=== PATIENT | male | born 1960 | race Caucasian/White ===

== ENCOUNTER 2019-01-29 01:06 | Emergency (ER) | payer OTHER, BC ==
[2019-01-29 01:19] VITALS: BP 142/76; PULSE 94; RESP 18; TEMP 98.3
--- NOTE | 2019-01-29 01:54 | ED ---
General Adult HPI - General Chief complaint: Extremity Injury, Lower Stated complaint: R Leg Pain Time Seen by Provider: 01/29/19 01:25 Source: patient, RN notes reviewed Mode of arrival: wheelchair Limitations: physical limitation - History of Present Illness Initial comments: 58-year-old male presents to the emergency department for a chief complaint of right calf pain 2 days. Patient states he started to notice this yesterday when he was working but denies any injuries. Denies ever feeling a snap. States that today the pain worsens severely where it is now painful to walk on. Patient denies any history of blood clots. Denies any significant swelling in the leg. Patient denies fevers or chills. Denies pain with bending the knee.Patient has no other complaints at this time including shortness of breath, chest pain, abdominal pain, nausea or vomiting, headache, or visual changes. - Related Data Home Medications Medication Instructions Recorded Confirmed Albuterol Sulfate [Proair Hfa] 1 puff INHALATION QID PRN 03/07/14 01/29/19 Rosuvastatin [Crestor] 1 tab PO HS 03/07/14 01/29/19 ALPRAZolam [Xanax] 1 mg PO DAILY PRN 01/29/19 01/29/19 Buprenorphine HCl/Naloxone HCl 1 mg PO BID 01/29/19 01/29/19 [Suboxone 8 mg-2 mg Sl Film] Naproxen [Naprosyn] 500 mg PO Q12HR PRN 01/29/19 01/29/19 Previous Rx's Medication Instructions Recorded Multivitamins, Thera [Multivitamin 1 each PO DAILY@1200 #30 tab 07/17/14 (formulary)] Allergies Allergy/AdvReac Type Severity Reaction Status Date / Time No Known Allergies Allergy Verified 01/29/19 01:19 Review of Systems ROS Statement: Those systems with pertinent positive or pertinent negative responses have been documented in the HPI. ROS Other: All systems not noted in ROS Statement are negative. Past Medical History Past Medical History: COPD, Hyperlipidemia Additional Past Medical History / Comment(s): chronic back pain, chronic drug use and dependence, chronic alcohol use and dependence, hyperlipidemia. History of Any Multi-Drug Resistant Organisms: None Reported, MRSA Date of last positivie culture/infection: 2012 MDRO Source:: abd wound Past Surgical History: Hernia Repair Additional Past Surgical History / Comment(s): umbilical and inguinal hernia Past Anesthesia/Blood Transfusion Reactions: No Reported Reaction Past Psychological History: Anxiety Smoking Status: Current every day smoker Past Alcohol Use History: Abuse Past Drug Use History: None Reported - Past Family History Mother Family Medical History: CVA/TIA (Mother at age of 85 from rheumatoid arthritis and she developed CVA) Father Family Medical History: Cancer (Father at the age of 75 from brain cancer) Sister(s) Family Medical History: No Reported History (One sister no major medical problem) Daughter(s) Family Medical History: No Reported History (One daughter 34-year-old no major medical problems.) General Exam Limitations: physical limitation General appearance: alert, in no apparent distress Head exam: Present: atraumatic, normocephalic, normal inspection Eye exam: Present: normal appearance, PERRL, EOMI. Absent: scleral icterus, conjunctival injection, periorbital swelling ENT exam: Present: normal exam, mucous membranes moist Neck exam: Present: normal inspection, full ROM. Absent: tenderness, meningismus, lymphadenopathy Respiratory exam: Present: normal lung sounds bilaterally. Absent: respiratory distress, wheezes, rales, rhonchi, stridor Cardiovascular Exam: Present: regular rate, normal rhythm, normal heart sounds. Absent: systolic murmur, diastolic murmur, rubs, gallop, clicks Extremities exam: Present: full ROM (Full range of motion of the right knee), tenderness (Minimal tenderness to the anterior right knee, there is mild posterior knee tenderness and proximal calf tenderness.), normal capillary refill (Capillary refill less than 2 seconds, pedal pulse 2+ in the right lower extremity), calf tenderness (Positive Homans sign, mild proximal calf tenderness.). Absent: pedal edema, joint swelling, other (No significant erythema or edema noted in the right calf, no increased circumference.) Neurological exam: Present: alert, oriented X3, CN II-XII intact Psychiatric exam: Present: normal affect, normal mood Course Vital Signs 01/29/19 01:09 Temperature 98.3 F Pulse Rate 94 Respiratory 18 Rate Blood Pressure 142/76 O2 Sat by Pulse 93 L Oximetry Medical Decision Making - Medical Decision Making 58-year-old male presents for right knee pain 2 days. Denies any injuries. States it is now painful to walk on. Denies pain with flexion of the knee. On exam patient is able to fully flex and extend right knee. Mild posterior knee tenderness and proximal calf tenderness. Neurovascular status intact. No erythema or edema. No evidence of infection. Ultrasound was ordered to rule out DVT. Ultrasound of the right lower extremity shows no DVT. At this time I do not see an emergent cause for knee pain. Patient was educated to follow up with primary care in 1-2 days and return if he has any worsening symptoms. Disposition Clinical Impression: Knee pain, right Disposition: HOME SELF-CARE Condition: Good Instructions (If sedation given, give patient instructions): Knee Pain (ED) Additional Instructions: Please follow up with primary care in 1-2 days. Return here to the ED if you have any worsening symptoms. Is patient prescribed a controlled substance at d/c from ED?: No Referrals: Hoa Crowe MD [Primary Care Provider] - 1-2 days Time of Disposition: 02:49
--- NOTE | 2019-01-29 02:16 | US ---
EXAM: US Duplex Right Lower Extremity Veins CLINICAL HISTORY: ITS.REASON US Reason: Pain TECHNIQUE: Real-time duplex ultrasound scan of the right lower extremity veins integrating B-mode two-dimensional vascular structure, Doppler spectral analysis, color flow Doppler imaging and compression. COMPARISON: No relevant prior studies available. FINDINGS: Deep veins: No DVT in the visualized common femoral, femoral, proximal deep femoral or popliteal veins. The veins demonstrate normal color flow, are normally compressible, with normal phasic flow and/or augmentation response. Superficial veins: No thrombus in the visualized great saphenous vein. Soft tissues: No popliteal cyst. IMPRESSION: No DVT.
== END 2019-01-29 03:07 | disposition home or self-care (01) ==
LOC: EC 01:06
DX: M25.561 Pain in right knee (principal); J44.9 Chronic obstructive pulmonary disease, unspecified; E78.5 Hyperlipidemia, unspecified; M54.9 Dorsalgia, unspecified; G89.29 Other chronic pain; F17.200 Nicotine dependence, unspecified, uncomplicated; Z86.14 Personal history of Methicillin resistant Staphylococcus aureus infection; Z79.899 Other long term (current) drug therapy
CPT/HCPCS: 99283

== ENCOUNTER → 2019-02-05 | Outpatient (CLI) | payer BC ==
--- NOTE | 2019-02-06 16:43 | MR ---
EXAMINATION TYPE: MR lumbar spine wo con DATE OF EXAM: 02/05/2019 COMPARISON: 10/06/2012 HISTORY: LBP, radiates into rt calf TECHNIQUE: Multiplanar, multisequence images of the lumbar spine were acquired. Lumbar vertebra have normal alignment. There is narrowing of L3-4 L4-5 disc spaces with spurring of t he endplates. There are small posterior disc herniations at L3-4 L4-5. There is developmentally adequ ate spinal canal and no significant spinal stenosis. There is no compression fracture. Posterior rampart ents are intact. There is hypertrophic facet arthropathy. There is mild lateral recess stenosis at L4 -5 due to facet arthropathy. There is some narrowing of the left side L4-5 neural foramen due to disc space narrowing and facet arthropathy. There is no paraspinal mass. There is no focal bone destruction. Sacroiliac joints are intact. IMPRESSION: Spondylotic changes. Mild lateral recess stenosis at L4-5. No significant spinal stenosis. No fractur e. Left-sided neural foraminal impingement at L4-5 due to facet arthropathy and posterior lateral dis c bulging and disc space narrowing.
== END | disposition home or self-care (01) ==
LOC: RADMRIMAIN 19:57
PROVIDERS: ATTEND Internal Medicine
DX: M99.73 Connective tissue and disc stenosis of intervertebral foramina of lumbar region (principal); M48.061 Spinal stenosis, lumbar region without neurogenic claudication; M47.16 Other spondylosis with myelopathy, lumbar region; M46.96 Unspecified inflammatory spondylopathy, lumbar region; M51.06 Intervertebral disc disorders with myelopathy, lumbar region
CPT/HCPCS: 72148

== ENCOUNTER → 2019-03-02 | Outpatient (CLI) | payer BC ==
[2019-03-02 13:47] VITALS: BP 127/72; PULSE 75; RESP 16; TEMP 98.3
--- NOTE | 2019-03-02 14:56 | XR ---
EXAMINATION TYPE: XR knee limited RT DATE OF EXAM: 03/02/2019 CLINICAL HISTORY: Pain. TECHNIQUE: Frontal and lateral views of the right knee are obtained. COMPARISON: Right leg x-ray March 09, 2015. FINDINGS: There is no acute fracture/dislocation evident in right knee. [id number]-[id number] tricompartm ental joint space loss most prominent medial tibiofemoral compartment. Mild spurring patellofemoral c ompartment. Increased density suprapatellar bursa suggestive of small to moderate-sized joint effusio n. IMPRESSION: As above.
--- NOTE | 2019-03-02 15:29 | P.PAINCN ---
History of Present Illness - Reason for Consult Consult date: 03/02/19 - History of Present Illness This is a 58-year-old patient presenting with a one-month history of right anterior and posterior knee pain as well as right calf pain. He denies any inciting event. He notes that he has had chronic low back pain for about 8-10 years, but this pain does not seem to be originating from his low back. He denies numbness, tingling, weakness. The patient states that over the last month he has had a few days where he has been unable to bear weight on the leg. He feels like his pain has stayed about the same since it began. He also notes when he first noticed the pain, his right knee was swollen. This has since subsided. Pain is worse with climbing stairs, better with naproxen which she is taking 3 times a day. Of note, the patient was weaned off narcotics by Dr. Arnold and transition to Suboxone. He reports that he was misusing opioids prior to starting Suboxone and had requested his doctor to wean him off opioids. Patient denies adverse drug effects from medications. Patient also denies new- onset weakness, bowel/bladder incontinence, or any other signs or symptoms of cauda equina syndrome. There are no signs of acute intoxication, and no indications of medication diversion or overuse. In addition to above, 13-point review of systems is also negative for chest pain, shortness of breath, changes in vision, changes in hearing, new onset weakness, abdominal pain, diarrhea, extreme fatigue, malaise, fever, skin changes, homicidal or suicidal ideation, or bowel or bladder incontinence. Vital Signs: Reviewed in EMR GENERAL: Well appearing, in no acute distress PSYCH: Mood and affect is appropriate. Awake, alert, and oriented SKIN: Skin color, texture, turgor normal, no rashes or lesions HEENT: Normocephalic, atraumatic. EOM intact CV: No pedal edema RESP: Respirations are unlabored, no audible wheezing GI: Abdomen non-distended MUSCULOSKELETAL: Bilateral upper and lower extremity strength is normal and symmetric. No atrophy or tone abnormalities are noted. Lumbar spine: Straight leg raising in the sitting position is negative for radicular pain. No pain to palpation over the lumbar spine and paraspinous muscles. Negative for pain with facet loading and back extension/rotation. Normal range of motion without pain reproduction Buttocks: No pain to palpation over the PSIS, Richard test is negative Right knee: Tenderness to palpation along medial and posterior joint line. No joint laxity noted. Anterior and posterior drawer tests are negative. Gait: Gait is slow, favors his left leg NEUR: Bilateral lower extremity coordination and muscle stretch reflexes are physiologic and symmetric. Negative clonus. No loss of sensation is noted. Cranial nerves are grossly intact. Imaging: MRI lumbar spine done on 02/05/2019 at [facility] shows spondylotic changes, mild lateral recess narrowing at L4-5 with left-sided neuroforaminal impingement at that level. No significant spinal canal stenosis. Assessment: 1. Right knee pain 2. Chronic opioid use: Suboxone 3. Chronic low back pain likely due to a combination of lumbar spondylosis and myofascial pain Plan: 1. Procedures: Will schedule right knee intra-articular steroid injection 2. Consultations: None 3. Investigations: Right knee AP and lateral x-ray 4. Medications: To be managed by PCP. Patient taking Suboxone and naproxen per PCP 5. Disposition: For procedure Past Medical History Past Medical History: COPD, Hyperlipidemia Additional Past Medical History / Comment(s): chronic back pain - degenerative disk disease and spurs History of Any Multi-Drug Resistant Organisms: MRSA Year Discovered:: 2012 MDRO Source:: abd wound Past Surgical History: Bowel Resection, Hernia Repair Additional Past Surgical History / Comment(s): bowel resection with colostomy for perforation, colostomy later reversed Past Anesthesia/Blood Transfusion Reactions: No Reported Reaction, Unable to Obtain Additional Past Anesthesia/Blood Transfusion Reaction / Comm: adopted-no family hx Past Psychological History: No Psychological Hx Reported Smoking Status: Current every day smoker Past Alcohol Use History: None Reported Additional Past Alcohol Use History / Comment(s): smokes 1/2 PPD, has smoked for 30 yrs, past hx ETOH and drug use Past Drug Use History: None Reported - Past Family History Mother Family Medical History: Unable to Obtain Additional Family Medical History / Comment(s): adopted Father Family Medical History: Cancer (Father at the age of 75 from brain cancer) Sister(s) Family Medical History: No Reported History (One sister no major medical problem) Daughter(s) Family Medical History: No Reported History (One daughter 34-year-old no major medical problems.) Medications and Allergies Home Medications Medication Instructions Recorded Confirmed Type Albuterol Sulfate [Proair Hfa] 2 puff INHALATION QID PRN 03/07/14 02/26/19 History Rosuvastatin [Crestor] 20 mg PO HS 03/07/14 03/02/19 History ALPRAZolam [Xanax] 1 mg PO DAILY PRN 01/29/19 03/02/19 History Naproxen [Naprosyn] 500 mg PO TID 01/29/19 03/02/19 History Buprenorphine HCl/Naloxone HCl 1 each SL BID 02/26/19 03/02/19 History [Suboxone 8 mg-2 mg Sl Film] Cholecalciferol (Vitamin D3) 2,000 unit PO DAILY 02/26/19 03/02/19 History [Vitamin D3] Ubidecarenone [Co Q-10] 200 mg PO DAILY 02/26/19 03/02/19 History Allergies Allergy/AdvReac Type Severity Reaction Status Date / Time No Known Allergies Allergy Verified 02/26/19 13:53 Physical Exam Vitals: Vital Signs Temp Pulse Resp BP Pulse Ox 03/02/19 13:39 98.3 F 75 16 127/72 97 PQRS Measure Charge Sheet Measure #130: Documentation of Current Meds in Medical Chart: Patient's medications documented in chart Measure #226: Tobacco Use: Screen & Cessation Intervention: Pt screened for tobacco use AND intervention given Measure #111: Pneumonia Vaccination: Pneumococcal vaccine NOT administered or previously given Measure #47: Advance Care Plan: Advance care planning discussed & documented, pt chose/unable to give Measure #412: Opioid Treatment Agreement: No documentation of signed opioid treatment agreement Measure #317: Preventitive Care & Scrn High Bld Press & F/U: Normal blood pressure, f/u not required Measure #128: Body Mass Index (BMI) Screening & Follow-up: BMI documented within normal parameters Measure #131: Pain Assessment & Follow-up: Pain positive & plan documented, Follow-up scheduled Measure #431: Unhealthy Alcohol Use Preventative Care & Scrn: Patient not identified as an unhealthy alcohol user PQRS Narrative: Smoking Status Current every day smoker Blood Pressure 127/72 Pain Intensity [Right Upper 3 Calf] Scale Used Numeric (1 - 10) Hx Alcohol Use (MH) No Home Medications: Ambulatory Orders Albuterol Sulfate [Proair Hfa] 2 puff INHALATION QID PRN 03/07/14 Rosuvastatin [Crestor] 20 mg PO HS 03/07/14 ALPRAZolam [Xanax] 1 mg PO DAILY PRN 01/29/19 Naproxen [Naprosyn] 500 mg PO TID 01/29/19 Buprenorphine HCl/Naloxone HCl [Suboxone 8 mg-2 mg Sl Film] 1 each SL BID 02/26/19 Cholecalciferol (Vitamin D3) [Vitamin D3] 2,000 unit PO DAILY 02/26/19 Ubidecarenone [Co Q-10] 200 mg PO DAILY 02/26/19
== END | disposition home or self-care (01) ==
LOC: PNWHC3 12:11
PROVIDERS: ATTEND Anesthesiology
DX: G89.29 Other chronic pain (principal); M25.561 Pain in right knee; M54.5 Low back pain; E78.5 Hyperlipidemia, unspecified; J44.9 Chronic obstructive pulmonary disease, unspecified; F17.200 Nicotine dependence, unspecified, uncomplicated; Z79.891 Long term (current) use of opiate analgesic; Z79.1 Long term (current) use of non-steroidal anti-inflammatories (NSAID); Z79.899 Other long term (current) drug therapy
CPT/HCPCS: 99211

== ENCOUNTER 2019-03-11 09:59 | Day surgery (SDC) | payer BC ==
[2019-03-08 15:52] VITALS: BMI 23.7
[2019-03-11 10:17] VITALS: RESP 18; TEMP 97.8
[2019-03-11] MEDS ORDERED: LIDOCAINE 1% 20 ML VIAL (10MG/ML) FOR IV START INTRADERMA ONE (10:23)
[2019-03-11] MEDS ORDERED: LACTATED RINGERS 1,000 ML IV ONE (10:23)
--- NOTE | 2019-03-11 10:50 | P.PCN ---
Date of Procedure: 03/11/19 Procedure(s) Performed: Procedure Note PROCEDURE PERFORMED: Right intra-articular knee joint injection. PREOPERATIVE DIAGNOSIS: Right knee pain and osteoarthritis POSTOPERATIVE DIAGNOSIS: same ATTENDING PHYSICIAN: Josy Rausch M.D. ANESTHESIA: Local infiltration of 2mL of 1% lidocaine, 1 mg versed INJECTATE: 5mL total solution, containing 4mL of 1% lidocaine and 1mL of 40mg/mL Kenalog SEDATION WAS PROVIDED Ultrasound was used for the procedure and images were printed and saved to chart. ESTIMATED BLOOD LOSS: None. COMPLICATIONS: None. A timeout was completed, verifying correct patient, procedure, site, positioning, and implants or special equipment. INDICATIONS FOR PROCEDURE: Patient has a clinical picture of knee pain and osteoarthritis of the above- mentioned knee joint(s). PROCEDURE AND FINDINGS: The patient was seen in the preoperative holding area. After verification of informed consent, availability of pizza delivery driver and n.p.o. status, the patient was brought to the procedure unit and placed on the bed with bilateral knees flexed using a pillow. Monitors were applied consisting of EKG, pulse oximetry, and noninvasive blood pressure cuff. The patient was monitored throughout the case. The area over the right knee(s) was then prepped in the usual sterile fashion. After identifying a point on the inferomedial pole of the femur by palpation, the ultrasound machine was prepped into the field and used for needle guidance. Using continuous ultrasound guidance, a 22-gauge 3-inch Pajunk needle was advanced easily in to the medial portion of the knee joint. Aspiration for intra-vascular placement was negative. At this point, the above listed injectate was delivered in to the joint without resistance. The needle was visualized throughout the entire procedure using ultrasound. The needle was then withdrawn. The patient tolerated the procedure well, with n o apparent complications. The patient was then taken to the postop holding area, where they remained hemodynamically stable and was observed for 20-30 mins. After instructions were given, the patient was discharged home in stable condition with a responsible adult.
[2019-03-11] MEDS ORDERED: IV FLUID CONTINUATION 1,000 ML IV ONE (10:52)
[2019-03-11 11:15] VITALS: BP 110/63; PULSE 72
== END 2019-03-11 11:42 | disposition home or self-care (01) ==
LOC: ORPAIN 09:59
PROVIDERS: ATTEND Anesthesiology
DX: M17.11 Unilateral primary osteoarthritis, right knee (principal); M47.816 Spondylosis without myelopathy or radiculopathy, lumbar region; M79.18 Myalgia, other site; G89.29 Other chronic pain; J44.9 Chronic obstructive pulmonary disease, unspecified; E78.5 Hyperlipidemia, unspecified; F17.200 Nicotine dependence, unspecified, uncomplicated; Z79.891 Long term (current) use of opiate analgesic; Z79.1 Long term (current) use of non-steroidal anti-inflammatories (NSAID); Z79.899 Other long term (current) drug therapy; Z90.49 Acquired absence of other specified parts of digestive tract; Z86.14 Personal history of Methicillin resistant Staphylococcus aureus infection; Z80.8 Family history of malignant neoplasm of other organs or systems
CPT/HCPCS: 20611; J2250; J3301; J2001; 20610; 99152

== ENCOUNTER 2019-04-01 09:37 | Emergency (ER) | payer BC ==
[2019-04-01 09:46] VITALS: BP 114/70; PULSE 95; RESP 18; TEMP 97.7
--- NOTE | 2019-04-01 10:20 | ED ---
Extremity Problem HPI - General Chief complaint: Extremity Problem,Nontraumatic Stated complaint: Leg swelling-needs US Time Seen by Provider: 04/01/19 09:49 Source: patient, RN notes reviewed, old records reviewed Mode of arrival: ambulatory Limitations: no limitations - History of Present Illness Initial comments: Bull is a 58-year-old male presents emergency department today for evaluation for right lower extremity redness and swelling. Patient reports it's importance over the past week. Patient states it seems to be swelling when he gets off of his work shift. Patient states that he called the pain clinic where he receives an injection within the knee. 2. They stated that he should be checked for blood clots. Patient states that he is a smoker but no history of blood clots. Patient reports a few weeks ago he had injury in his leg at work, and pulled a muscle. - Related Data Home Medications Medication Instructions Recorded Confirmed Albuterol Sulfate [Proair Hfa] 2 puff INHALATION RT-QID PRN 03/07/14 04/01/19 Rosuvastatin [Crestor] 20 mg PO HS 03/07/14 04/01/19 ALPRAZolam [Xanax] 1 mg PO DAILY PRN 01/29/19 04/01/19 Naproxen [Naprosyn] 500 mg PO TID 01/29/19 04/01/19 Buprenorphine HCl/Naloxone HCl 1 film SL BID 02/26/19 04/01/19 [Suboxone 8 mg-2 mg Sl Film] Cholecalciferol (Vitamin D3) 2,000 unit PO DAILY 02/26/19 04/01/19 [Vitamin D3] Ubidecarenone [Co Q-10] 200 mg PO DAILY 02/26/19 04/01/19 Previous Rx's Medication Instructions Recorded Cephalexin [Keflex] 500 mg PO Q8HR #21 cap 04/01/19 Allergies Allergy/AdvReac Type Severity Reaction Status Date / Time No Known Allergies Allergy Verified 04/01/19 10:00 Review of Systems ROS Statement: Those systems with pertinent positive or pertinent negative responses have been documented in the HPI. ROS Other: All systems not noted in ROS Statement are negative. Past Medical History Past Medical History: COPD, Hyperlipidemia Additional Past Medical History / Comment(s): chronic back pain - degenerative disk disease and spurs History of Any Multi-Drug Resistant Organisms: MRSA Date of last positivie culture/infection: 2012 MDRO Source:: abd wound Past Surgical History: Bowel Resection, Hernia Repair Additional Past Surgical History / Comment(s): bowel resection with colostomy for perforation, colostomy later reversed Past Anesthesia/Blood Transfusion Reactions: No Reported Reaction, Unable to Obtain Additional Past Anesthesia/Blood Transfusion Reaction / Comment(s): adopted-no family hx Past Psychological History: No Psychological Hx Reported Smoking Status: Current every day smoker Past Alcohol Use History: None Reported Past Drug Use History: None Reported - Past Family History Mother Family Medical History: Unable to Obtain Additional Family Medical History / Comment(s): adopted Father Family Medical History: Cancer (Father at the age of 75 from brain cancer) Sister(s) Family Medical History: No Reported History (One sister no major medical problem) Daughter(s) Family Medical History: No Reported History (One daughter 34-year-old no major medical problems.) General Exam - General Exam Comments Initial Comments: Plasant 58 YO male Limitations: no limitations General appearance: alert, in no apparent distress Head exam: Present: atraumatic, normocephalic, normal inspection Eye exam: Present: normal appearance, PERRL, EOMI. Absent: scleral icterus, conjunctival injection, periorbital swelling ENT exam: Present: normal exam, mucous membranes moist Neck exam: Present: normal inspection Respiratory exam: Present: normal lung sounds bilaterally. Absent: respiratory distress, wheezes, rales, rhonchi, stridor Cardiovascular Exam: Present: regular rate GI/Abdominal exam: Present: soft, normal bowel sounds. Absent: distended, tende rness, guarding, rebound, rigid Extremities exam: Present: normal inspection, full ROM, normal capillary refill. Absent: tenderness, pedal edema, joint swelling, calf tenderness Right Knee exam: Present: normal inspection, full ROM Lower Leg exam: Present: abrasion (scabed over abrasion over distal liu. measures 1cm. ), erythema (erythema around abrasion site. ). Absent: tenderness Ankle exam: Present: normal inspection, full ROM. Absent: tenderness Foot/Toe exam: Present: normal inspection, full ROM Gait: observed and normal Back exam: Present: normal inspection Neurological exam: Present: alert, oriented X3, CN II-XII intact Psychiatric exam: Present: normal affect, normal mood Skin exam: Present: warm, dry, intact, normal color. Absent: rash Course Vital Signs 04/01/19 09:40 Temperature 97.7 F Pulse Rate 95 Respiratory 18 Rate Blood Pressure 114/70 O2 Sat by Pulse 99 Oximetry Medical Decision Making - Medical Decision Making 58 year old male concerned for DVT in right leg, with redness over liu. Patient at this time has abrasion over leg, slight erythema over liu. No calf tenderness. Patient US hsows no DVT, evidence of resolving hematoma. At this time patient admitted to pulled muscle injury at work a few weeks ago. At this time with erytyhea near abrasion, will treat with keflex for cellulitis. - Radiology Data Radiology results: report reviewed No DVT. Right popliteal fossa cyst. Nonvascular multi septated structure within the right medial calf A representing a resolving hematoma. Other differentials include lymphangioma or mass. If symptoms persist CT or MRI in the right upper calf to be performed. Disposition Clinical Impression: Cellulitis, leg, Leg hematoma Disposition: HOME SELF-CARE Condition: Good Instructions (If sedation given, give patient instructions): Cellulitis (ED), Hematoma (ED) Additional Instructions: Patient advised her of the Lonnie wrap while he is up at work. When you're off resting keep the foot up and elevated. Take antibiotics as prescribed. Follow- up with your PCP within the next week. Return to the emergency department if any alarming signs or symptoms occur. Prescriptions: Cephalexin [Keflex] 500 mg PO Q8HR #21 cap Is patient prescribed a controlled substance at d/c from ED?: No Referrals: Hoa Crowe MD [Primary Care Provider] - 1-2 days Time of Disposition: 11:40
--- NOTE | 2019-04-01 11:06 | US ---
EXAMINATION TYPE: US venous doppler duplex LE RT DATE OF EXAM: 04/01/2019 10:48 AM COMPARISON: 01/29/2019 CLINICAL HISTORY: Pain. No hx of blood clots. No blood thinners. Patient states having right calf s welling. SIDE PERFORMED: Right TECHNIQUE: The lower extremity deep venous system is examined utilizing real time linear array sonog morelia with graded compression, doppler sonography and color-flow sonography. VESSELS IMAGED: External Iliac Vein (EIV) Common Femoral Vein Deep Femoral Vein Greater Saphenous Vein * Femoral Vein Popliteal Vein Small Saphenous Vein * Proximal Calf Veins (* superficial vessels) Right Leg: Negative for DVT. Fluid collection seen posterior right knee near popliteal vessels = 4. 6 x 1.3 x 0.6 cm. Complex fluid collections seen medial upper calf= 9.5 x 3.7 x 2.1 cm. IMPRESSION: No DVT. Right popliteal fossa cyst. Nonvascular multiseptated structure in the medial right upper calf favored to represent a resolving h ematoma. Other differentials include lymphangioma or mass. If symptoms persist, CT or MRI with contra st of the right upper calf may be performed.
== END 2019-04-01 11:50 | disposition home or self-care (01) ==
LOC: EC 09:37
DX: L03.115 Cellulitis of right lower limb (principal); S80.11XD Contusion of right lower leg, subsequent encounter; J44.9 Chronic obstructive pulmonary disease, unspecified; E78.5 Hyperlipidemia, unspecified; G89.29 Other chronic pain; F17.200 Nicotine dependence, unspecified, uncomplicated; Z79.1 Long term (current) use of non-steroidal anti-inflammatories (NSAID); Z79.899 Other long term (current) drug therapy; Z86.14 Personal history of Methicillin resistant Staphylococcus aureus infection; X50.1XXD Overexertion from prolonged static or awkward postures, subsequent encounter
CPT/HCPCS: 99284

== ENCOUNTER → 2019-04-08 | Outpatient (CLI) | payer BC ==
[2019-04-08 13:55] VITALS: BP 144/77; PULSE 88; RESP 16
--- NOTE | 2019-04-08 16:01 | P.PAINPG ---
Subjective Progress Note Date: 04/08/19 This is 58 years old male with complaints of months history of severe right knee pain, the pain started almost 2 months ago and the anterior and the posterior aspect of his right knee and also towards the medial aspect of the right calf, patient was evaluated in the emergency room recently and he was diagnosed with colitis on the right lower extremity, the patient came to the clinic for reevaluation, patient reported that he had severe pain in the medial aspect of the right calf, he is not able to ambulate because of this intensity of the pain, he denies any low back pain he denies any numbness or tingling sensation in the lower extremity, he described his pain as a dull aching pain localized to the posterior and medial aspect of the right calf Objective - Vital Signs Vital signs: Vital Signs Temp Pulse 88 04/08/19 13:46 Resp 16 04/08/19 13:46 BP 144/77 04/08/19 13:46 Pulse Ox 96 04/08/19 13:46 Intake & Output 04/07/19 04/08/19 04/08/19 18:59 06:59 18:59 Weight 77.111 kg - Exam Physical Examinations : -Constitutiona : Cooperative , not in acute distress . -HEENT : nech : supple , no Lymphadenopathy , normal thyroid size . eyes : no ptosis , no icterus, no photophobia . - neurologic : Cranial nerve II to XII intact , no focal neurological deffecit . -psychatric : alert , oriented X 3 , appropriate affect , intact judgment and insight . -Lymphatic : no Lymphadenopathy . - musculoskeltal : Lumber spine moter stegnth lower extremities ,thigh and legs 5/5 Right side , 5/5 Left side deep tendon reflexes : normal Knee Jerk , normal ankle Jerk positive lumber facet Loading Test Range of motion of the lumbar spine Flexion 60 degrees, extension 30 degrees strait leg raising test = negative bilaterally Fabere test = negative bilaterally No tenderness over the sacroiliac joint Severe tenderness over the medial aspect on the right calf ( localized at the tendon of the muscle ) No swelling, no erythema. Flexion and extension of the knee =full range of motion without abnormalities MRI of the lumbar spine done previously showed multilevel lumbar herniated disc disease Assessment and Plan Plan: Assessment and plan=1-muscular/myofascial pain right calf area patient could benefit from Voltaren gel 1% to be applied to the right calf. Patient could benefit from muscle relaxant baclofen 10 mg every morning Patient could benefit from physical therapy evaluation and treatment, Even though patient had multilevel lumbar herniated disc disease but clinical exam does not support that his pain is coming from the lumbar spine, Time with Patient: Less than 30 PQRS Measure Charge Sheet Measure #130: Documentation of Current Meds in Medical Chart: Patient's medications documented in chart Measure #226: Tobacco Use: Screen & Cessation Intervention: Pt screened for tobacco use AND intervention given Measure #111: Pneumonia Vaccination: Pneumococcal vaccine NOT administered or previously given Measure #47: Advance Care Plan: Advance care planning discussed & documented, pt chose/unable to give Measure #412: Opioid Treatment Agreement: No documentation of signed opioid treatment agreement Measure #408: Opioid Therapy Follow-up Evaluation: Patient had NO f/u eval minimum every 3 months during opioid therapy Measure #317: Preventitive Care & Scrn High Bld Press & F/U: Pre-hypertensive or hypertensive BP documented, pt will f/u with PCP Measure #128: Body Mass Index (BMI) Screening & Follow-up: BMI documented within normal parameters Measure #131: Pain Assessment & Follow-up: Pain positive & plan documented, Follow-up scheduled Measure #431: Unhealthy Alcohol Use Preventative Care & Scrn: Patient not identified as an unhealthy alcohol user PQRS Narrative: Smoking Status Current every day smoker Blood Pressure 144/77 Pain Intensity [Bilateral 5 Lower Back] Pain Intensity [Right Calf] 9 Pain Intensity [Right Knee] 5 Scale Used Numeric (1 - 10) Hx Alcohol Use (MH) No Home Medications: Ambulatory Orders Albuterol Sulfate [Proair Hfa] 2 puff INHALATION RT-QID PRN 03/07/14 Rosuvastatin [Crestor] 20 mg PO HS 03/07/14 ALPRAZolam [Xanax] 1 mg PO DAILY PRN 01/29/19 Naproxen [Naprosyn] 500 mg PO TID 01/29/19 Buprenorphine HCl/Naloxone HCl [Suboxone 8 mg-2 mg Sl Film] 1 film SL BID 02/26/19 Cholecalciferol (Vitamin D3) [Vitamin D3] 2,000 unit PO DAILY 02/26/19 Ubidecarenone [Co Q-10] 200 mg PO DAILY 02/26/19 Cephalexin [Keflex] 500 mg PO Q8HR #21 cap 04/01/19 Controlled Substance Measures - Controlled Substance Measures Is patient prescribed a controlled substance at discharge?: No
== END ==
LOC: PNWHC3 12:31
PROVIDERS: ATTEND Specialist
DX: M79.18 Myalgia, other site (principal); F17.200 Nicotine dependence, unspecified, uncomplicated; Z79.899 Other long term (current) drug therapy; Z79.2 Long term (current) use of antibiotics
CPT/HCPCS: 99211

== ENCOUNTER 2019-05-05 04:41 | Emergency (ER) | payer BC ==
[2019-05-05 04:46] VITALS: RESP 18
[2019-05-05] MEDS ORDERED: KETOROLAC 60 MG/2 ML VIAL IM STA (05:04)
[2019-05-05] MEDS ORDERED: ORPHENADRINE 30 MG/ML 2 ML VIAL IM STA (05:04)
--- NOTE | 2019-05-05 05:55 | ED ---
Neck Injury/Pain HPI - General Chief Complaint: Neck Pain/Injury Stated Complaint: Neck Stiffness Time Seen by Provider: 05/05/19 04:58 Mode of arrival: ambulatory Limitations: no limitations - History of Present Illness Initial Comments: This patient is 59-year-old man who presents to be evaluated for bilateral neck pain that is been coming on and getting progressively worse over about the past 3 days. The patient states that he thought he may have slept in a funny position. The patient states that when he tried to go to work tonight there was too much pain. He notes that pain is worse. Attempts to turn his head or extend his neck. Pain is better if he remains still. It is an aching, moderate but becomes severe with movement area he has not had fever or chills. No headache. No neurologic symptoms. No direct trauma. MD Complaint: neck pain Onset/Timin -: days(s) Place: work Radiation: right lateral, left lateral Severity: moderate Quality: aching Consistency: constant Improves With: remaining still Worsens With: movement of neck Associated Symptoms: none Treatments Prior to Arrival: none - Related Data Home Medications Medication Instructions Recorded Confirmed Albuterol Sulfate [Proair Hfa] 2 puff INHALATION RT-QID PRN 03/07/14 04/08/19 Rosuvastatin [Crestor] 20 mg PO HS 03/07/14 04/08/19 ALPRAZolam [Xanax] 1 mg PO DAILY PRN 01/29/19 04/08/19 Naproxen [Naprosyn] 500 mg PO TID 01/29/19 04/08/19 Buprenorphine HCl/Naloxone HCl 1 film SL BID 02/26/19 04/08/19 [Suboxone 8 mg-2 mg Sl Film] Cholecalciferol (Vitamin D3) 2,000 unit PO DAILY 02/26/19 04/08/19 [Vitamin D3] Ubidecarenone [Co Q-10] 200 mg PO DAILY 02/26/19 04/08/19 Previous Rx's Medication Instructions Recorded Cephalexin [Keflex] 500 mg PO Q8HR #21 cap 04/01/19 Methocarbamol [Robaxin-750] 750 mg PO TID PRN #30 tablet 05/05/19 Naproxen 250 mg PO BID #20 tablet 05/05/19 Allergies Allergy/AdvReac Type Severity Reaction Status Date / Time No Known Allergies Allergy Verified 04/08/19 13:38 Review of Systems ROS Statement: Those systems with pertinent positive or pertinent negative responses have been documented in the HPI. ROS Other: All systems not noted in ROS Statement are negative. Constitutional: Denies: fever, chills, weakness Eyes: Denies: eye pain, vision change ENT: Denies: ear pain, throat pain, hearing loss Respiratory: Denies: cough, dyspnea Musculoskeletal: Denies: back pain Neurological: Denies: headache, weakness, numbness, paresthesias Past Medical History Past Medical History: COPD, Hyperlipidemia Additional Past Medical History / Comment(s): chronic back pain - degenerative disk disease and spurs History of Any Multi-Drug Resistant Organisms: MRSA Date of last positivie culture/infection: 2012 MDRO Source:: abd wound Past Surgical History: Bowel Resection, Hernia Repair Additional Past Surgical History / Comment(s): bowel resection with colostomy for perforation, colostomy later reversed,pain procedure Past Anesthesia/Blood Transfusion Reactions: No Reported Reaction, Unable to Obtain Additional Past Anesthesia/Blood Transfusion Reaction / Comment(s): adopted-no family hx Past Psychological History: No Psychological Hx Reported Smoking Status: Current every day smoker Past Alcohol Use History: None Reported Past Drug Use History: None Reported - Past Family History Mother Family Medical History: Unable to Obtain Additional Family Medical History / Comment(s): adopted Father Family Medical History: Cancer (Father at the age of 75 from brain cancer) Sister(s) Family Medical History: No Reported History (One sister no major medical problem) Daughter(s) Family Medical History: No Reported History (One daughter 34-year-old no major medical problems.) General Exam Limitations: no limitations General appearance: alert, in no apparent distress Head exam: Present: atraumatic, normocephalic Eye exam: Present: normal appearance. Absent: scleral icterus, conjunctival injection Neck exam: Present: tenderness, other (The patient does have palpable spasm of the trapezius and paraspinal muscles. There is decreased range of motion due to muscular pain. No bony tenderness or deformity.). Absent: meningismus, lymphadenopathy Respiratory exam: Present: normal lung sounds bilaterally. Absent: respiratory distress, wheezes, rales, rhonchi, stridor Cardiovascular Exam: Present: regular rate, normal rhythm, normal heart sounds. Absent: systolic murmur, diastolic murmur, rubs, gallop Back exam: Present: normal inspection. Absent: vertebral tenderness Neurological exam: Present: alert Skin exam: Present: warm, dry, intact, normal color. Absent: rash Course Vital Signs 05/05/19 04:42 Temperature 98.2 F Pulse Rate 95 Respiratory 18 Rate Blood Pressure 122/73 O2 Sat by Pulse 97 Oximetry Disposition Clinical Impression: Acute torticollis Disposition: HOME SELF-CARE Condition: Good Instructions (If sedation given, give patient instructions): Spasmodic Torticollis (ED) Prescriptions: Naproxen 250 mg PO BID #20 tablet Methocarbamol [Robaxin-750] 750 mg PO TID PRN #30 tablet PRN Reason: pain Is patient prescribed a controlled substance at d/c from ED?: No Referrals: Hoa Crowe MD [Primary Care Provider] - 1-2 days
[2019-05-05 06:25] VITALS: BP 136/78; PULSE 88; TEMP 97.3
== END 2019-05-05 06:25 | disposition home or self-care (01) ==
LOC: EC 04:41
DX: M43.6 Torticollis (principal); J44.9 Chronic obstructive pulmonary disease, unspecified; E78.5 Hyperlipidemia, unspecified; G89.29 Other chronic pain; M54.9 Dorsalgia, unspecified; F17.200 Nicotine dependence, unspecified, uncomplicated; Z79.1 Long term (current) use of non-steroidal anti-inflammatories (NSAID); Z79.51 Long term (current) use of inhaled steroids; Z79.899 Other long term (current) drug therapy; Z86.14 Personal history of Methicillin resistant Staphylococcus aureus infection
CPT/HCPCS: 99283; 96372 ×2; J2360; J1885

== ENCOUNTER 2021-05-09 15:16 | Inpatient (IN) | payer BC, OTHER ==
[2021-05-09] MEDS ORDERED: methylPREDNISolone SOD SUCCI 125 MG/2 ML VIAL IV STA (15:52)
--- NOTE | 2021-05-09 15:56 | ED ---
General Adult HPI - General Chief complaint: Shortness of Breath Stated complaint: JESSICA Time Seen by Provider: 05/09/21 15:22 Source: patient, EMS, RN notes reviewed Mode of arrival: EMS Limitations: no limitations - History of Present Illness Initial comments: Patient is a pleasant 61-year-old male presenting to the emergency department with difficulty breathing. Symptoms have been present for several weeks. Patient does have COPD. Patient does have mild cough. Nonproductive. No fevers. No recent known over 19 exposure. Patient was seen at [facility] today and advised come the hospital secondary to pulse ox 86. No leg pain or leg swelling. Patient does still smoke. - Related Data Home Medications Medication Instructions Recorded Confirmed No Known Home Medications 05/09/21 05/09/21 Allergies Allergy/AdvReac Type Severity Reaction Status Date / Time No Known Allergies Allergy Verified 05/09/21 16:42 Review of Systems ROS Statement: Those systems with pertinent positive or pertinent negative responses have been documented in the HPI. ROS Other: All systems not noted in ROS Statement are negative. Constitutional: Denies: fever, chills Eyes: Denies: eye pain ENT: Denies: ear pain Respiratory: Reports: as per HPI, cough, dyspnea Cardiovascular: Denies: chest pain Endocrine: Denies: fatigue Gastrointestinal: Denies: abdominal pain Genitourinary: Denies: dysuria Musculoskeletal: Denies: back pain Skin: Denies: rash Neurological: Denies: weakness Past Medical History Past Medical History: COPD, Hyperlipidemia Additional Past Medical History / Comment(s): chronic back pain - degenerative disk disease and spurs History of Any Multi-Drug Resistant Organisms: MRSA Date of last positivie culture/infection: 2012 MDRO Source:: abd wound Past Surgical History: Bowel Resection, Hernia Repair Additional Past Surgical History / Comment(s): bowel resection with colostomy for perforation, colostomy later reversed,pain procedure Past Anesthesia/Blood Transfusion Reactions: No Reported Reaction, Unable to Obtain Additional Past Anesthesia/Blood Transfusion Reaction / Comment(s): adopted-no family hx Past Psychological History: No Psychological Hx Reported Smoking Status: Current every day smoker Past Alcohol Use History: None Reported Past Drug Use History: None Reported - Past Family History Mother Family Medical History: Unable to Obtain Additional Family Medical History / Comment(s): adopted Father Family Medical History: Cancer (Father at the age of 75 from brain cancer) Sister(s) Family Medical History: No Reported History (One sister no major medical problem) Daughter(s) Family Medical History: No Reported History (One daughter 34-year-old no major medical problems.) General Exam Limitations: no limitations General appearance: alert Head exam: Present: normocephalic Eye exam: Present: normal appearance Neck exam: Present: normal inspection Respiratory exam: Present: wheezes Cardiovascular Exam: Present: regular rate, normal rhythm GI/Abdominal exam: Present: soft. Absent: tenderness Extremities exam: Present: normal inspection Neurological exam: Present: alert Psychiatric exam: Present: normal affect, normal mood Skin exam: Present: normal color Course Vital Signs 05/09/21 05/09/21 05/09/21 15:21 15:24 15:41 Temperature 97.9 F Pulse Rate 88 72 Respiratory 20 20 20 Rate Blood Pressure 135/72 130/72 O2 Sat by Pulse 87 L 92 L Oximetry 05/09/21 16:58 Temperature Pulse Rate 61 Respiratory 20 Rate Blood Pressure 118/77 O2 Sat by Pulse 91 L Oximetry - Reevaluation(s) Reevaluation #1: 05/09/21 15:56 Patient does request of Xanax. He states his last one was around 1 AM. EKG Findings - EKG Comments: EKG Findings:: Normal sinus rhythm with rate of 82. GA 184. QRS 96. QT 384. QTC 448. Normal axis. Borderline inferior Q waves. No acute ST change. Medical Decision Making - Medical Decision Making Patient reevaluated and updated. Case discussed with Dr. Crowe, who will admit his patient. - Lab Data Result diagrams: 05/09/21 16:14 05/09/21 16:14 Lab Results 05/09/21 05/09/21 05/09/21 Range/Units 16:14 16:14 16:14 WBC 6.6 (3.8-10.6) k/uL RBC 5.14 (4.30-5.90) m/uL Hgb 15.9 (13.0-17.5) gm/dL Hct 50.5 (39.0-53.0) % MCV 98.2 (80.0-100.0) fL MCH 31.0 (25.0-35.0) pg MCHC 31.5 (31.0-37.0) g/dL RDW 12.7 (11.5-15.5) % Plt Count 240 (150-450) k/uL MPV 8.3 Neutrophils % 68 % Lymphocytes % 25 % Monocytes % 3 % Eosinophils % 1 % Basophils % 1 % Neutrophils # 4.5 (1.3-7.7) k/uL Lymphocytes # 1.6 (1.0-4.8) k/uL Monocytes # 0.2 (0-1.0) k/uL Eosinophils # 0.1 (0-0.7) k/uL Basophils # 0.1 (0-0.2) k/uL PT 10.5 (9.0-12.0) sec INR 1.0 (<1.2) APTT 25.1 (22.0-30.0) sec Sodium 139 (137-145) mmol/L Potassium 4.5 (3.5-5.1) mmol/L Chloride 105 (98-107) mmol/L Carbon Dioxide 27 (22-30) mmol/L Anion Gap 7 mmol/L BUN 14 (9-20) mg/dL Creatinine 0.62 L (0.66-1.25) mg/dL Est GFR (CKD-EPI)AfAm >90 (>60 ml/min/1.73 sqM) Est GFR (CKD-EPI)NonAf >90 (>60 ml/min/1.73 sqM) Glucose 128 H (74-99) mg/dL Plasma Lactic Acid Gee (0.7-2.0) mmol/L Calcium 9.4 (8.4-10.2) mg/dL Total Bilirubin 0.5 (0.2-1.3) mg/dL AST 29 (17-59) U/L ALT 12 (4-49) U/L Alkaline Phosphatase 69 (38-126) U/L NT-Pro-B Natriuret Pep pg/mL Total Protein 6.5 (6.3-8.2) g/dL Albumin 4.0 (3.5-5.0) g/dL Coronavirus (PCR) (Not Detectd) 05/09/21 05/09/21 05/09/21 Range/Units 16:14 16:14 16:14 WBC (3.8-10.6) k/uL RBC (4.30-5.90) m/uL Hgb (13.0-17.5) gm/dL Hct (39.0-53.0) % MCV (80.0-100.0) fL MCH (25.0-35.0) pg MCHC (31.0-37.0) g/dL RDW (11.5-15.5) % Plt Count (150-450) k/uL MPV Neutrophils % % Lymphocytes % % Monocytes % % Eosinophils % % Basophils % % Neutrophils # (1.3-7.7) k/uL Lymphocytes # (1.0-4.8) k/uL Monocytes # (0-1.0) k/uL Eosinophils # (0-0.7) k/uL Basophils # (0-0.2) k/uL PT (9.0-12.0) sec INR (<1.2) APTT (22.0-30.0) sec Sodium (137-145) mmol/L Potassium (3.5-5.1) mmol/L Chloride (98-107) mmol/L Carbon Dioxide (22-30) mmol/L Anion Gap mmol/L BUN (9-20) mg/dL Creatinine (0.66-1.25) mg/dL Est GFR (CKD-EPI)AfAm (>60 ml/min/1.73 sqM) Est GFR (CKD-EPI)NonAf (>60 ml/min/1.73 sqM) Glucose (74-99) mg/dL Plasma Lactic Acid Gee 1.2 (0.7-2.0) mmol/L Calcium (8.4-10.2) mg/dL Total Bilirubin (0.2-1.3) mg/dL AST (17-59) U/L ALT (4-49) U/L Alkaline Phosphatase (38-126) U/L NT-Pro-B Natriuret Pep 55 pg/mL Total Protein (6.3-8.2) g/dL Albumin (3.5-5.0) g/dL Coronavirus (PCR) Not Detected (Not Detectd) - Radiology Data Radiology results: image reviewed (Chest x-ray shows prominent chronic changes with possible developing bibasilar atelectasis or infiltrate.) Disposition Clinical Impression: Acute exacerbation of chronic obstructive pulmonary disease Disposition: ADMITTED IP TO THIS HOSP Is patient prescribed a controlled substance at d/c from ED?: No Referrals: Hoa Crowe MD [Primary Care Provider] - 1-2 days Decision Time: 17:27
[2021-05-09 16:23] LABS: Basophils # (A) 0.1 k/uL (0-0.2); Basophils % (A) 1 %; Eosinophils # (A) 0.1 k/uL (0-0.7); Eosinophils % (A) 1 %; HCT 50.5 % (39.0-53.0); HGB 15.9 gm/dL (13.0-17.5); Lymphocytes # (A) 1.6 k/uL (1.0-4.8); Lymphocytes % (A) 25 %; MCHC 31.5 g/dL (31.0-37.0); MCV 98.2 fL (80.0-100.0); Mean Platelet Volume 8.3; Monocytes # (A) 0.2 k/uL (0-1.0); Monocytes % (A) 3 %; Neutrophils # (A) 4.5 k/uL (1.3-7.7); Neutrophils % (A) 68 %; Platelet Count 240 k/uL (150-450); RBC 5.14 m/uL (4.30-5.90); RDW 12.7 % (11.5-15.5); WBC 6.6 k/uL (3.8-10.6)
[2021-05-09 16:33] LABS: ALT 12 U/L (4-49); AST 29 U/L (17-59); African American GFR (CKD) >90 (>60 ml/min/1.73 sqM); Alkaline Phosphatase 69 U/L (38-126); Anion Gap 7 mmol/L; Blood Urea Nitrogen 14 mg/dL (9-20); Calcium 9.4 mg/dL (8.4-10.2); Carbon Dioxide 27 mmol/L (22-30); Chloride 105 mmol/L (98-107); Glucose 128 mg/dL (74-99); Non-African American GFR(CKD) >90 (>60 ml/min/1.73 sqM); Sodium 139 mmol/L (137-145); Total Bilirubin 0.5 mg/dL (0.2-1.3); Total Protein 6.5 g/dL (6.3-8.2)
--- NOTE | 2021-05-09 16:34 | XR ---
EXAMINATION TYPE: XR chest 2V DATE OF EXAM: 05/09/2021 COMPARISON: Prior chest x-ray August 15, 2014 HISTORY: Shortness of breath. TECHNIQUE: Frontal and lateral views of the chest are obtained. FINDINGS: There is background Chronic emphysematous and pulmonary fibrotic changes with interval pro gression from 2014 study. Patchy basilar opacities on current study. No pleural effusion or pneumoth orax seen bilaterally. The cardiac silhouette size is more prominent and upper limits of normal. Old Bilateral rib fractures are now noted. IMPRESSION: More prominent Chronic changes with perhaps developing bibasilar infiltrate and/or atel ectasis. Correlate clinically.
[2021-05-09 16:36] LABS: Partial Thromboplastin Time 25.1 sec (22.0-30.0); Prothrombin Time 10.5 sec (9.0-12.0)
[2021-05-09 16:41] LABS: Potassium 4.5 mmol/L (3.5-5.1)
[2021-05-09] MEDS ORDERED: IPRATROPIUM-ALBUTEROL 3 ML NEB INHALATION PRN (17:28)
[2021-05-09] MEDS ORDERED: ALPRAZolam 0.25 MG TAB PO PRN (17:29)
[2021-05-09] MEDS ORDERED: ALPRAZolam 0.5 MG TAB PO STA (17:29)
[2021-05-09] MEDS ORDERED: methylPREDNISolone SOD SUCCI 125 MG/2 ML VIAL IV SCH (18:00)
[2021-05-09] MEDS: IPRATROPIUM-ALBUTEROL 3 ML NEB INHALATION SCH (20:49)
[2021-05-09] MEDS: CEFDINIR 300 MG CAP PO SCH (21:51)
[2021-05-09] MEDS: methylPREDNISolone SOD SUCCI 125 MG/2 ML VIAL IV SCH (23:18)
[2021-05-10] MEDS: methylPREDNISolone SOD SUCCI 125 MG/2 ML VIAL IV SCH ×4 (05:51→23:14)
[2021-05-10] MEDS: CEFDINIR 300 MG CAP PO SCH (07:26)
[2021-05-10] MEDS: IPRATROPIUM-ALBUTEROL 3 ML NEB INHALATION SCH ×4 (08:40→19:20)
--- NOTE | 2021-05-10 09:21 | P.HPIM ---
History of Present Illness H&P Date: 05/10/21 HISTORY OF PRESENT ILLNESS This is a 61-year-old male patient of Dr. Crowe with past medical history of tobacco use and dependence, COPD, chronic low back pain secondary to de generative disc disease of the lumbar spine, chronic use and dependence in the past with Halcion and now with Xanax. Patient gives history that he was to have a left total knee arthroplasty in October 2019 but due to Covid this was postponed and has not had surgery, subsequently lost his job and on temporary disability. He complains of shortness of breath along with cough, nonproductive cough. He was admitted to [place] for detox from Xanax which he states he has been taking up to 15-20 mg per day. He states he has received Xanax prescriptions from a clinic and also bothering Xanax. Patient presented to [facility] emergency center for evaluation. Patient was found to be afebrile, heart rate 88, blood pressure 135/72, pulse ox 87% on room air. CBC was unremarkable. INR 1.0. Electrolytes normal. Creatinine 0.62. Liver function test were negative. ProBNP 55. Albumin 4.0. Coronavirus PCR not detected. Chest x-ray shows more prominent chronic changes with perhaps developing bibasilar infiltrate and/or atelectasis. Patient was started on IV Solu-Medrol, DuoNeb treatments, Omnicef and admitted to the [place] floor, consult with pulmonary medicine. REVIEW OF SYSTEMS Constitutional: No fever, no chills, no night sweats. No weight change. No weakness, fatigue or lethargy. No daytime sleepiness. EENT: No headache. No blurred vision or double vision, no loss of vision. No loss of Hearing, no ringing in the ears, no dizziness. No nasal drainage or congestion. No epistaxis. No sore throat. Lungs: Reports shortness of breath, reports cough, no sputum production. Reports wheezing. Cardiovascular: No chest pain, no lower extremity edema. No palpitations. No paroxysmal nocturnal dyspnea. No orthopnea. No lightheadedness or dizziness. No syncopal episodes. Abdominal: No abdominal pain. No nausea, vomiting. No diarrhea. No constipation. No bloody or tarry stools. No loss of appetite. Genitourinary: No dysuria, increased frequency, urgency. No urinary retention. Musculoskeletal: No myalgias. No muscle weakness, no gait dysfunction, no frequent falls. No back pain. No neck pain. Integumentary: No wounds, no lesions. No rash or pruritus. No unusual bruising. No change in hair or nails. Neurologic: No aphasia. No facial droop. No change in mentation. No head injury. No headache. No paralysis. No paresthesia. Psychiatric: No depression. Reports anxiety. No mood swings. Endocrine: No abnormal blood sugars. No weight change. No excessive sweating or thirst. No cold intolerance. SOCIAL HISTORY Patient is a smoker of one pack per day for greater than 40 years. He also has history of alcohol abuse but he states he has had no alcohol intake since 2013. He does have Xanax addiction and has been taking 15-20 mg per day. FAMILY HISTORY Mother at age of 85 from CVA with history of rheumatoid arthritis. Father at the age of 75 from brain cancer. Patient has one sisterpassed from heart failure. He has one daughter and he has had no contact with her for greater than 30 years. PHYSICAL EXAMINATION Gen: This is this is a 61-year-old male. He is resting in bed and appears to be anxious. No acute respiratory distress noted. HEENT: Head is atraumatic, normocephalic. Pupils equal, round. Sclerae is anicteric. NECK: Supple. No JVD. No lymphadenopathy. No thyromegaly. LUNGS: Diminished breath sounds, scattered expiratory wheeze, prolonged expiration. No intercostal retractions. HEART: Regular rate and rhythm. No murmur. ABDOMEN: Soft. Bowel sounds are present. No masses. No tenderness. EXTREMITIES: No pedal edema. No calf tenderness. Dorsalis pedis +2 bilaterally. NEUROLOGICAL: Patient is awake, alert and oriented x3. Cranial nerves 2 through 12 are grossly intact. ASSESSMENT AND PLAN 1. Acute hypoxic respiratory failure secondary to COPD exacerbation and pneumonia. Patient started on ceftriaxone and azithromycin, DuoNeb treatments 4 times daily and as needed, Pulmicort 1 mg twice daily, Solu-Medrol 60 mg IV every 6 hours, pulmonary consult. 2. Xanax addiction. Patient was admitted yesterday to [place] prior to being transferred to the hospital. Patient admitted to taking up to 15-20 mg of Xanax daily. He will be placed on Xanax or 0.5 mg 3 times daily. 3. COPD exacerbation. Continue Solu-Medrol, DuoNeb treatments and Pulmicort. 4. Bilateral pneumonia, possible gram-negative pneumonia. Patient started on ceftriaxone and azithromycin. 5. Tobacco use and dependence. Nicotine patch. 6. History of multi-substance abuse. 7. Generalized osteoarthritis, degenerative disc disease, chronic pain. 8. GI prophylaxis. Protonix. 9. DVT prophylaxis. Lovenox. 10. COVID-19 testing negative. Patient will be admitted to the hospital for a minimum of 2 night stay. DISCHARGE PLAN Home. Impression and plan of care have been directed as dictated by the signing physician. Sol Gonzalez nurse practitioner acting as scribe for signing physician. Past Medical History Past Medical History: COPD, Hyperlipidemia Additional Past Medical History / Comment(s): chronic back pain - degenerative disk disease and spurs History of Any Multi-Drug Resistant Organisms: None Reported Date of last positivie culture/infection: 2012 MDRO Source:: abd wound Past Surgical History: Bowel Resection, Hernia Repair Additional Past Surgical History / Comment(s): bowel resection with colostomy for perforation, colostomy later reversed,pain procedure Past Anesthesia/Blood Transfusion Reactions: No Reported Reaction Additional Past Anesthesia/Blood Transfusion Reaction / Comment(s): adopted-no family hx Past Psychological History: No Psychological Hx Reported Smoking Status: Current every day smoker Past Alcohol Use History: None Reported Additional Past Alcohol Use History / Comment(s): smokes 1 PPD, has smoked for 30 yrs, past hx ETOH and drug use Past Drug Use History: None Reported - Past Family History Mother Family Medical History: Unable to Obtain Additional Family Medical History / Comment(s): adopted Father Family Medical History: Cancer (Father at the age of 75 from brain cancer) Sister(s) Family Medical History: No Reported History (One sister no major medical pro blem) Daughter(s) Family Medical History: No Reported History (One daughter 34-year-old no major medical problems.) Medications and Allergies Home Medications Medication Instructions Recorded Confirmed Type No Known Home Medications 05/09/21 05/09/21 History Allergies Allergy/AdvReac Type Severity Reaction Status Date / Time No Known Allergies Allergy Verified 05/09/21 16:42 Physical Exam Vitals: Vital Signs Temp Pulse Pulse Resp BP BP Pulse Ox 05/10/21 02:00 97.3 F L 91 18 116/60 94 L 05/09/21 20:49 86 94 L 05/09/21 20:38 92 20 128/93 92 L 05/09/21 20:00 97.8 F 79 19 120/70 91 L 05/09/21 19:15 81 20 124/86 92 L 05/09/21 16:58 61 20 118/77 91 L 05/09/21 15:41 20 05/09/21 15:24 72 20 130/72 92 L 05/09/21 15:21 97.9 F 88 20 135/72 87 L Intake and Output 05/09/21 05/10/21 05/10/21 22:59 06:59 14:59 Other: Voiding Method Toilet Weight 74.843 kg Results CBC & Chem 7: 05/09/21 16:14 05/09/21 16:14 Labs: Abnormal Lab Results - Last 24 Hours (Table) 05/09/21 Range/Units 16:14 Creatinine 0.62 L (0.66-1.25) mg/dL Glucose 128 H (74-99) mg/dL Thrombosis Risk Factor Assmnt - Choose All That Apply Any of the Below Risk Factors Present?: Yes Each Factor Represents 1 point: Abnormal pulmonary function (COPD) Other Risk Factors: Yes Each Risk Factor Represents 2 Points: Age 61-74 years Thrombosis Risk Factor Assessment Total Risk Factor Score: 3 Thrombosis Risk Factor Assessment Level: Moderate Risk
[2021-05-10] MEDS: ALPRAZolam 0.5 MG TAB PO PRN (10:10)
[2021-05-10] MEDS: AZITHROMYCIN 500 MG TAB PO SCH (10:18)
[2021-05-10] MEDS: NICOTINE 21MG/24HR PATCH TRANSDERM SCH (10:19)
[2021-05-10] MEDS ORDERED: LORazepam 2 MG/ML INJ IV PRN (10:58)
[2021-05-10 11:31] LABS: Glucose,Whole Blood 147 mg/dL (75-99)
[2021-05-10] MEDS: LORazepam 2 MG/ML INJ IV PRN ×3 (12:14→19:12)
[2021-05-10] MEDS: INSULIN ASPART (NovoLOG) 100 UNIT/ML VIAL SQ SCH ×3 (12:14→21:03)
--- NOTE | 2021-05-10 14:46 | P.CNPUL ---
History of Present Illness Consult date: 05/10/21 Requesting physician: Hoa Crowe Reason for consult: dyspnea, cough, COPD, hypoxemia, abnormal CXR/CT Chief complaint: Shortness of breath, COPD exacerbation. History of present illness: Pulmonary consult dated 05/10/2021. 61-year-old male, who apparently was going to [place], to get rehab from excessive use of Xanax. The patient apparently developed shortness of breath there, and was transferred here to be evaluated. He was seen in the emergency department, and admitted with a diagnosis of COPD exacerbation. He's been smoking since the age of 11. He does continue to smoke about a pack or more a day. His symptoms included shortness of breath, tightness, cough, wheezing, and chest congestion. Cough is mostly nonproductive. The patient does not use oxygen at home. Apparently has never seen a lung doctor in the past. Not sure if he was told in the past that he had COPD. The patient denies any significant past medical history. I'm not sure where he was getting Xanax from. He denies cardiac disease, diabetes, hypertension, hyperlipidemia, and all other medical problems. Has never been formally diagnosed with COPD. White count 6.6, hemoglobin 15.9, hematocrit 50.5, and platelet count was 240,000. PT, INR, and PTT are all normal. His electrolyte profile is normal except for a creatinine of 0.62 which is actually low. The rest of his labs all look normal. His testing for gregory virus looks to be negative. Chest x-ray in my penis consistent with COPD, and some basilar atelectatic changes. Review of Systems REVIEW OF SYSTEMS: CONSTITUTIONAL: [Negative.] NEUROLOGIC: [ Negative.] HEENT: [ Negative.] CARDIAC: [Negative.] PULMONARY: Shortness of breath, cough, wheezing, chest tightness, and chest congestion. GI: [Negative.] : [Negative.] RHEUMATOLOGIC: [ Negative.] IMMUNOLOGIC: [ Negative.] ENDOCRINE: [Negative. ] DERMATOLOGIC: [Negative.] Past Medical History Past Medical History: COPD, Hyperlipidemia Additional Past Medical History / Comment(s): chronic back pain - degenerative disk disease and spurs History of Any Multi-Drug Resistant Organisms: None Reported Date of last positivie culture/infection: 2012 MDRO Source:: abd wound Past Surgical History: Bowel Resection, Hernia Repair Additional Past Surgical History / Comment(s): bowel resection with colostomy for perforation, colostomy later reversed,pain procedure Past Anesthesia/Blood Transfusion Reactions: No Reported Reaction Additional Past Anesthesia/Blood Transfusion Reaction / Comment(s): adopted-no family hx Past Psychological History: No Psychological Hx Reported Smoking Status: Current every day smoker Past Alcohol Use History: None Reported Additional Past Alcohol Use History / Comment(s): smokes 1 PPD, has smoked for 30 yrs, past hx ETOH and drug use Past Drug Use History: None Reported - Past Family History Mother Family Medical History: Unable to Obtain Additional Family Medical History / Comment(s): adopted Father Family Medical History: Cancer (Father at the age of 75 from brain cancer) Sister(s) Family Medical History: No Reported History (One sister no major medical problem) Daughter(s) Family Medical History: No Reported History (One daughter 34-year-old no major medical problems.) Medications and Allergies Home Medications Medication Instructions Recorded Confirmed Type No Known Home Medications 05/09/21 05/09/21 History Allergies Allergy/AdvReac Type Severity Reaction Status Date / Time No Known Allergies Allergy Verified 05/09/21 16:42 Physical Exam Osteopathic Statement: *. No significant issues noted on an osteopathic structural exam other than those noted in the History and Physical/Consult. Vitals: Vital Signs Temp Pulse Pulse Resp BP BP Pulse Ox 05/10/21 11:52 99 20 05/10/21 11:41 98 20 05/10/21 08:54 100 18 05/10/21 08:41 100 20 05/10/21 08:00 97.5 F L 88 18 119/77 90 L 05/10/21 02:00 97.3 F L 91 18 116/60 94 L 05/09/21 20:49 86 94 L 05/09/21 20:38 92 20 128/93 92 L 05/09/21 20:00 97.8 F 79 19 120/70 91 L 05/09/21 19:15 81 20 124/86 92 L 05/09/21 16:58 61 20 118/77 91 L 05/09/21 15:41 20 05/09/21 15:24 72 20 130/72 92 L 05/09/21 15:21 97.9 F 88 20 135/72 87 L Intake and Output 09/22/21 09/23/21 09/23/21 22:59 06:59 14:59 Other: Voiding Method Toilet Weight 74.843 kg No acute distress, oriented 3. No use of accessory muscles, or audible wheezing. No conversational dyspnea. Patient on 3 L nasal cannula. Saturations are in the mid 90s. HEENT examination is grossly unremarkable. Neck supple. Full range of motion. No adenopathy thyromegaly or neck vein distention. Cardiovascular examination reveals regular rhythm rate. S1-S2 normal. No S3 or S4. No discernible murmur noted. Heart rate 99 bpm. Heart sounds are distant. Lungs reveal diffuse coarse rhonchi, and expiratory wheezes. No crackles. Prolongation on forced maneuver. Breath sounds equal bilaterally. Abdomen soft bowel sounds are heard. No masses or tenderness. Extremities are intact. No cyanosis clubbing or edema. Skin is without rash or lesion. Neurologic examination is brief but nonfocal. Results - Laboratory Findings CBC and BMP: 05/09/21 16:14 05/09/21 16:14 PT/INR, D-dimer PT 10.5 sec (9.0-12.0) 05/09/21 16:14 INR 1.0 (<1.2) 05/09/21 16:14 Abnormal lab findings: Abnormal Labs 05/09/21 05/10/21 16:14 11:28 Creatinine 0.62 L Glucose 128 H POC Glucose (mg/dL) 147 H - Diagnostic Findings Chest x-ray: image reviewed Assessment and Plan Assessment: Acute exacerbation of COPD. No evidence of pneumonia clinically or radiographically. Ongoing tobacco use and nicotine addiction. History of Xanax abuse. Plan: Plan dated 05/10/2021. The patient will be placed on albuterol sulfate and ipratropium bromide, 4 times a day and when necessary. In addition, the patient will need Pulmicort 1 mg mixed with formoterol 20 g twice a day. We also recommend Solu-Medrol 60 mg ev kelsey 6 hours. In addition, the patient should have a nicotine patch. Additional recommendations and suggestions are forthcoming. Prognosis is guarded. We will continue to follow and make recommendations where appropriate. Time with Patient: Greater than 30
[2021-05-10 16:39] LABS: Glucose,Whole Blood 169 mg/dL (75-99)
[2021-05-10] MEDS: FORMOTEROL FUMARATE 20 MCG/2 ML NEBU INHALATION SCH (19:20)
[2021-05-10] MEDS: BUDESONIDE 1 MG/2 ML NEBU INHALATION SCH (19:20)
[2021-05-10 20:07] LABS: Glucose,Whole Blood 158 mg/dL (75-99)
[2021-05-11] MEDS: LORazepam 2 MG/ML INJ IV PRN ×4 (02:52→17:57)
[2021-05-11] MEDS: methylPREDNISolone SOD SUCCI 125 MG/2 ML VIAL IV SCH ×3 (05:52→17:52)
[2021-05-11 07:01] LABS: Glucose,Whole Blood 158 mg/dL (75-99)
[2021-05-11] MEDS: PANTOPRAZOLE 40 MG TABLET PO SCH (07:38)
[2021-05-11] MEDS: INSULIN ASPART (NovoLOG) 100 UNIT/ML VIAL SQ SCH ×4 (07:38→22:27)
[2021-05-11] MEDS: THIAMINE 100 MG TAB PO SCH (07:38)
[2021-05-11] MEDS: ENOXAPARIN 40 MG/0.4 ML SYRINGE SQ SCH (07:39)
[2021-05-11] MEDS: NICOTINE 21MG/24HR PATCH TRANSDERM SCH (07:39)
[2021-05-11] MEDS: AZITHROMYCIN 500 MG TAB PO SCH (07:39)
[2021-05-11] MEDS: IPRATROPIUM-ALBUTEROL 3 ML NEB INHALATION SCH ×4 (08:25→19:01)
[2021-05-11] MEDS: FORMOTEROL FUMARATE 20 MCG/2 ML NEBU INHALATION SCH ×2 (08:25→19:02)
[2021-05-11] MEDS: BUDESONIDE 1 MG/2 ML NEBU INHALATION SCH ×2 (08:25→19:02)
[2021-05-11 11:27] LABS: Glucose,Whole Blood 127 mg/dL (75-99)
--- NOTE | 2021-05-11 12:09 | P.PN ---
Subjective Progress Note Date: 05/11/21 Principal diagnosis: COPD exacerbation 61-year-old male, who apparently was going to [place], to get rehab from excessive use of Xanax. The patient apparently developed shortness of breath there, and was transferred here to be evaluated. He was seen in the emergency department, and admitted with a diagnosis of COPD exacerbation. He's been smoking since the age of 11. He does continue to smoke about a pack or more a day. His symptoms included shortness of breath, tightness, cough, wheezing, and chest congestion. Cough is mostly nonproductive. The patient does not use oxygen at home. Apparently has never seen a lung doctor in the past. Not sure if he was told in the past that he had COPD. The patient denies any significant past medical history. I'm not sure where he was getting Xanax from. He denies cardiac disease, diabetes, hypertension, hyperlipidemia, and all other medical problems. Has never been formally diagnosed with COPD. White count 6.6, hemoglobin 15.9, hematocrit 50.5, and platelet count was 240,000. PT, INR, and PTT are all normal. His electrolyte profile is normal except for a creatinine of 0.62 which is actually low. The rest of his labs all look normal. His testing for gregory virus looks to be negative. Chest x-ray in my penis consistent with COPD, and some basilar atelectatic changes. The patient is seen today 05/11/2021 in follow-up on the regular medical floor. He is currently resting fairly comfortably in bed. Breathing a bit easier today compared to yesterday. 18 O2 saturations in the low 90s on 4 L/m per nasal cannula. Slightly tachycardic. Afebrile. Blood glucose 127. He continues on DuoNeb inhalations, Pulmicort and Perforomist inhalations, IV Cymetra. Antibiotics in form of ceftriaxone and azithromycin. NicoDerm patches in place. Remains in the CIWA protocol. Objective - Vital Signs Vital signs: Vital Signs Temp 97.6 F 05/11/21 07:10 Pulse 101 H 05/11/21 08:48 Resp 18 05/11/21 08:48 BP 129/68 05/11/21 07:10 Pulse Ox 92 L 05/11/21 08:25 Intake & Output 05/10/21 05/11/2121 18:59 06:59 18:59 Other: Voiding Method Toilet # Voids 3 2 - Exam GENERAL EXAM: Alert, 61-year-old gentleman, appears older than stated age, on 4 L nasal cannula, comfortable in no apparent distress. HEAD: Normocephalic. EYES: Normal reaction of pupils, equal size. NOSE: Clear with pink turbinates. THROAT: No erythema or exudates. NECK: No masses, no JVD. CHEST: No chest wall deformity. LUNGS: Equal air entry with bilateral end expiratory wheeze. CVS: S1 and S2 normal with no audible murmur, regular rhythm. ABDOMEN: No hepatosplenomegaly, normal bowel sounds, no guarding or rigidity. SPINE: No scoliosis or deformity SKIN: No rashes CENTRAL NERVOUS SYSTEM: No focal deficits, tone is normal in all 4 extremities. EXTREMITIES: There is no peripheral edema. No clubbing, no cyanosis. Peripheral pulses are intact. - Labs CBC & Chem 7: 05/09/21 16:14 05/09/21 16:14 Labs: Abnormal Lab Results - Last 24 Hours (Table) 05/10/21 05/10/21 05/11/21 Range/Units 16:35 20:05 06:58 POC Glucose (mg/dL) 169 H 158 H 158 H (75-99) mg/dL 05/11/21 Range/Units 11:25 POC Glucose (mg/dL) 127 H (75-99) mg/dL Assessment and Plan Assessment: 1 Acute exacerbation of chronic obstructive pulmonary disease 2 Chronic and ongoing tobacco dependence 3 History of Xanax abuse Plan: The patient was seen and evaluated by Dr. Frost Continue the current treatment plan Titrate the FiO2 as tolerated Again educated regarding the presence of complete smoking cessation NicoDerm patch remains in place We'll continue to follow I, the cosigning physician, performed a history & physical examination of the patient. Lungs sounds with bilateral end expiratory wheeze. Maintaining good O2 saturations in the 90s on 4 L/m per nasal cannula. I discussed the assessment and plan of care with my nurse practitioner, Silvia Esqueda. I attest to the above note as dictated by her.
--- NOTE | 2021-05-11 14:28 | P.PN ---
Subjective Progress Note Date: 05/11/21 HISTORY OF PRESENT ILLNESS This is a 61-year-old male patient of Dr. Crowe with past medical history of tobacco use and dependence, COPD, chronic low back pain secondary to degenera tive disc disease of the lumbar spine, chronic use and dependence in the past with Halcion and now with Xanax. Patient gives history that he was to have a left total knee arthroplasty in October 2019 but due to Covid this was postponed and has not had surgery, subsequently lost his job and on temporary disability. He complains of shortness of breath along with cough, nonproductive cough. He was admitted to [place] for detox from Xanax which he states he has been taking up to 15-20 mg per day. He states he has received Xanax prescriptions from a clinic and also bothering Xanax. Patient presented to [facility] emergency center for evaluation. Patient was found to be afebrile, heart rate 88, blood pressure 135/72, pulse ox 87% on room air. CBC was unremarkable. INR 1.0. Electrolytes normal. Creatinine 0.62. Liver function test were negative. ProBNP 55. Album in 4.0. Coronavirus PCR not detected. Chest x-ray shows more prominent chronic changes with perhaps developing bibasilar infiltrate and/or atelectasis. Patient was started on IV Solu-Medrol, DuoNeb treatments, Omnicef [facility] with pulmonary medicine. 05/11: Patient has been afebrile, heart rate 95, blood pressure 129/68, pulse ox is 90% on 4 L nasal cannula. Her blood glucose running between 158 and 169. Patient has been seen by pulmonary medicine and Perforomist twice daily was added. Yesterday afternoon, patient had increasing tremors, anxiety and sweats and patient was started on CIWA protocol. No new complaints. Respiratory status is improved slightly from yesterday. REVIEW OF SYSTEMS Constitutional: No fever, no chills, no night sweats. No weight change. No weakness, fatigue or lethargy. No daytime sleepiness. EENT: No headache. No blurred vision or double vision, no loss of vision. No loss of Hearing, no ringing in the ears, no dizziness. No nasal drainage or congestion. No epistaxis. No sore throat. Lungs: Reports shortness of breath improved, reports cough, no sputum production. Reports wheezing. Cardiovascular: No chest pain, no lower extremity edema. No palpitations. No paroxysmal nocturnal dyspnea. No orthopnea. No lightheadedness or dizziness. No syncopal episodes. Abdominal: No abdominal pain. No nausea, vomiting. No diarrhea. No constipation. No bloody or tarry stools. No loss of appetite. Genitourinary: No dysuria, increased frequency, urgency. No urinary retention. Musculoskeletal: No myalgias. No muscle weakness, no gait dysfunction, no frequent falls. No back pain. No neck pain. Integumentary: No wounds, no lesions. No rash or pruritus. No unusual bruising. No change in hair or nails. Neurologic: No aphasia. No facial droop. No change in mentation. No head injury. No headache. No paralysis. No paresthesia. Psychiatric: No depression. Reports anxiety. No mood swings. Endocrine: No abnormal blood sugars. PHYSICAL EXAMINATION Gen: This is this is a 61-year-old male. He is resting in bed and appears to be anxious. No acute respiratory distress noted. HEENT: Head is atraumatic, normocephalic. Pupils equal, round. Sclerae is anicteric. NECK: Supple. No JVD. No lymphadenopathy. No thyromegaly. LUNGS: Expiratory wheeze, prolonged expiration. No intercostal retractions. HEART: Regular rate and rhythm. No murmur. ABDOMEN: Soft. Bowel sounds are present. No masses. No tenderness. EXTREMITIES: No pedal edema. No calf tenderness. Dorsalis pedis +2 bilaterally. NEUROLOGICAL: Patient is awake, alert and oriented x3. Cranial nerves 2 through 12 are grossly intact. ASSESSMENT AND PLAN 1. Acute hypoxic respiratory failure secondary to COPD exacerbation and pneumonia. Continue patient on ceftriaxone and azithromycin, DuoNeb treatments 4 times daily and as needed, Pulmicort 1 mg twice daily, Solu-Medrol 60 mg IV every 6 hours, pulmonary consult appreciated. 2. Xanax addiction. Patient was admitted yesterday to [place] prior to being transferred to the hospital. Patient admitted to taking up to 15-20 mg of Xanax daily. Continue patient on CIWA protocol. 3. COPD exacerbation. Continue Solu-Medrol, DuoNeb treatments and Pulmicort. 4. Bilateral pneumonia, possible gram-negative pneumonia. Patient started on ceftriaxone and azithromycin. 5. Tobacco use and dependence. Nicotine patch and smoking cessation. 6. History of multi-substance abuse. 7. Generalized osteoarthritis, degenerative disc disease, chronic pain. 8. GI prophylaxis. Protonix. 9. DVT prophylaxis. Lovenox. 10. COVID-19 testing negative. Patient will be admitted to the hospital for a minimum of 2 night stay. DISCHARGE PLAN Return to [facility]. Impression and plan of care have been directed as dictated by the signing physician. Sol Gonzalez nurse practitioner acting as scribe for signing physician. Objective - Vital Signs Vital signs: Vital Signs Temp 97.6 F 05/11/21 07:10 Pulse 95 05/11/21 07:10 Resp 17 05/11/21 07:10 BP 129/68 05/11/21 07:10 Pulse Ox 90 L 05/11/21 07:10 Intake & Output 05/10/21 05/11/21 05/11/21 18:59 06:59 18:59 Other: Voiding Method Toilet # Voids 3 2 - Labs CBC & Chem 7: 05/09/21 16:14 05/09/21 16:14 Labs: Abnormal Lab Results - Last 24 Hours (Table) 05/10/21 05/10/21 05/10/21 Range/Units 11:28 16:35 20:05 POC Glucose (mg/dL) 147 H 169 H 158 H (75-99) mg/dL 05/11/21 Range/Units 06:58 POC Glucose (mg/dL) 158 H (75-99) mg/dL
[2021-05-11 16:54] LABS: Glucose,Whole Blood 127 mg/dL (75-99)
[2021-05-11 20:41] LABS: Glucose,Whole Blood 182 mg/dL (75-99)
[2021-05-11] MEDS: ALPRAZolam 0.5 MG TAB PO PRN (22:27)
[2021-05-12] MEDS: methylPREDNISolone SOD SUCCI 125 MG/2 ML VIAL IV SCH ×2 (01:20→06:30)
[2021-05-12 06:59] LABS: Glucose,Whole Blood 123 mg/dL (75-99)
[2021-05-12] MEDS: INSULIN ASPART (NovoLOG) 100 UNIT/ML VIAL SQ SCH ×4 (08:19→20:54)
[2021-05-12] MEDS: AZITHROMYCIN 500 MG TAB PO SCH (08:19)
[2021-05-12] MEDS: ENOXAPARIN 40 MG/0.4 ML SYRINGE SQ SCH (08:19)
[2021-05-12] MEDS: NICOTINE 21MG/24HR PATCH TRANSDERM SCH (08:19)
[2021-05-12] MEDS: THIAMINE 100 MG TAB PO SCH (08:19)
[2021-05-12] MEDS: PANTOPRAZOLE 40 MG TABLET PO SCH (08:19)
[2021-05-12] MEDS: BUDESONIDE 1 MG/2 ML NEBU INHALATION SCH ×2 (08:43→21:41)
[2021-05-12] MEDS: IPRATROPIUM-ALBUTEROL 3 ML NEB INHALATION SCH ×4 (08:43→21:41)
[2021-05-12] MEDS: FORMOTEROL FUMARATE 20 MCG/2 ML NEBU INHALATION SCH ×2 (08:43→21:41)
[2021-05-12] MEDS: LORazepam 2 MG/ML INJ IV PRN ×2 (09:46→17:16)
--- NOTE | 2021-05-12 10:49 | P.PN ---
Subjective Progress Note Date: 05/12/21 Progress Note Date: 05/12/21 HISTORY OF PRESENT ILLNESS This is a 61-year-old male patient of Dr. Crowe with past medical history of tobacco use and dependence, COPD, chronic low back pain secondary to degenerative disc disease of the lumbar spine, chronic use and dependence in the past with Halcion and now with Xanax. Patient gives history that he was to have a left total knee arthroplasty in October 2019 but due to Covid this was postponed and has not had surgery, subsequently lost his job and on temporary disability. He complains of shortness of breath along with cough, nonproductive cough. He was admitted to [place] for detox from Xanax which he states he has been taking up to 15-20 mg per day. He states he has received Xanax prescriptions from a clinic and also bothering Xanax. Patient presented to [facility] emergency center for evaluation. Patient was found to be afebrile, heart rate 88, blood pressure 135/72, pulse ox 87% on room air. CBC was unremarkable. INR 1.0. Electrolytes normal. Creatinine 0.62. Liver function test were negative. ProBNP 55. Albumin 4.0. Coronavirus PCR not detected. Chest x-ray shows more prominent chronic changes with perhaps developing bibasilar infiltrate and/or atelectasis. Patient was started on IV Solu-Medrol, DuoNeb treatments, Omnicef and [facility], consult with pulmonary medicine. 05/11: Patient has been afebrile, heart rate 95, blood pressure 129/68, pulse ox is 90% on 4 L nasal cannula. Her blood glucose running between 158 and 169. Patient has been seen by pulmonary medicine and Perforomist twice daily was added. Yesterday afternoon, patient had increasing tremors, anxiety and sweats and patient was started on CIWA protocol. No new complaints. Respiratory status is improved slightly from yesterday. 05/12: Patient sitting up in bed in no apparent distress, he continues to be a bit shaky, he continues to be somewhat short of breath, he continues to have some coughing and production, he feels a bit tight in his chest at this time, he denies any abdominal pain, nausea or vomiting, he is not able to sleep at night at all, he has been on CIWA protocol, along with Xanax 00.25 milligrams orally 2 times every day to avoid withdrawal from benzodiazepine, we'll continue to wean the patient off benzodiazepines slowly but surely. Patient will likely be discharged home in the next 1 or 2 days. REVIEW OF SYSTEMS Constitutional: No fever, no chills, no night sweats. No weight change. No weakness, fatigue or lethargy. No daytime sleepiness. HEENT: positive for headache. No blurred vision or double vision, no loss of vision. No loss of Hearing, no ringing in the ears, no dizziness. No nasal drainage or congestion. No epistaxis. No sore throat. Lungs: Reports shortness of breath improved, reports cough, no sputum production. Reports wheezing. Cardiovascular: No chest pain, no lower extremity edema. No palpitations. No paroxysmal nocturnal dyspnea. No orthopnea. No lightheadedness or dizziness. No syncopal episodes. Abdominal: No abdominal pain. No nausea, vomiting. No diarrhea. No constipation. No bloody or tarry stools. No loss of appetite. Genitourinary: No dysuria, increased frequency, urgency. No urinary retention. Musculoskeletal: No myalgias. No muscle weakness, no gait dysfunction, no frequent falls. No back pain. No neck pain. Integumentary: No wounds, no lesions. No rash or pruritus. No unusual bruising. No change in hair or nails. Neurologic: No aphasia. No facial droop. No change in mentation. No head injury. No headache. No paralysis. No paresthesia. Psychiatric: No depression. Reports anxiety. No mood swings. Endocrine: No abnormal blood sugars. PHYSICAL EXAMINATION Gen: This is this is a 61-year-old male. He is resting in bed and appears to be anxious. No acute respiratory distress noted. HEENT: Head is atraumatic, normocephalic. Pupils equal, round. Sclerae is anicteric, mucous membranes of the mouth are somewhat dry without thrush NECK: Supple. No JVD. No lymphadenopathy. No thyromegaly. LUNGS: Decreased breath sounds at the bases, few rhonchi, minimal expiratory wheezes, no chest wall tenderness, no intercostal retractions. HEART: First heart sound is depressed, second heart sounds normal, there is no gallop or murmur. ABDOMEN: Soft, nontender nondistended positive bowel sounds, no hepatosplenomegaly. EXTREMITIES: No pedal edema. No calf tenderness. Dorsalis pedis +2 claudette aterally. NEUROLOGICAL: Patient is awake, alert and oriented x3. Cranial nerves 2 through 12 are grossly intact, muscle power 4 out of 5 in upper and lower extremities bilaterally, deep tendon reflexes were normal there was no clonus. ASSESSMENT AND PLAN 1. Acute hypoxic respiratory failure secondary to COPD exacerbation and pneumonia. Continue patient on ceftriaxone 1 g IV piggyback daily along with Zithromax 500 mg orally once every day, continue DuoNeb 3 mg nebulization 4 times every day, continue oxygen support, continue Pulmicort 1 mg nebulization twice every day along with Formeterol NEB bid, decrease Solu-Medrol 40 mg IV push every 8 hours. 2. Benzodiazepine dependence. Patient was admitted to [place] prior to being transferred to the hospital. Patient admitted to taking up to 15-20 mg of Xanax daily. Continue patient on CIWA protocol. continue Xanax 0.5 mg orally 3 times every day. 3. COPD exacerbation. smoking cessation and counseling continue with Solu- Medrol 40 mg IV push every 8 hours, continue DuoNeb 3 mg nebulization 4 times every day, continue with Pulmicort 1 mg nebulization twice every day along with Formeterol. 4. Bilateral pneumonia, possible gram-negative pneumonia. continue patient on Rocephin 1 g IV piggyback every 24 hours, continue Zithromax 500 mg orally once every day, continue oxygen support as needed, continue with bronchodilators 5.. Tobacco use and dependence. Nicotine patch and smoking cessation. 6. History of multi-substance abuse. need to be going back to [place]. 7. Generalized osteoarthritis, degenerative disc disease, chronic pain. 8. GI prophylaxis. continue Protonix 40 mg orally once every day. 9. DVT prophylaxis. Lovenox 40 mg subcutaneously once every day. 10. COVID-19 testing negative. 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 Objective - Vital Signs Vital signs: Vital Signs Temp 97.4 F L 05/12/21 07:53 Pulse 92 05/12/21 09:08 Resp 18 05/12/21 07:53 BP 134/81 05/12/21 07:53 Pulse Ox 94 L 05/12/21 08:46 Intake & Output 05/11/21 05/12/21 05/12/21 18:59 06:59 18:59 Intake Total 240 Balance 240 Intake: Oral 240 Other: Voiding Method Toilet Toilet Toilet # Voids 3 6 # Bowel Movements 0 - Labs CBC & Chem 7: 05/09/21 16:14 05/09/21 16:14 Labs: Abnormal Lab Results - Last 24 Hours (Table) 05/11/21 05/11/21 05/11/21 Range/Units 11:25 16:52 20:39 POC Glucose (mg/dL) 127 H 127 H 182 H (75-99) mg/dL 05/12/21 Range/Units 06:58 POC Glucose (mg/dL) 123 H (75-99) mg/dL
[2021-05-12 11:29] LABS: Glucose,Whole Blood 146 mg/dL (75-99)
[2021-05-12] MEDS: methylPREDNISolone SOD SUCCI 40 MG/ML 1 ML VIAL IV SCH ×2 (12:39→20:51)
--- NOTE | 2021-05-12 14:06 | P.PN ---
Subjective Progress Note Date: 05/12/21 Principal diagnosis: Shortness of breath. COPD exacerbation 61-year-old male, who apparently was going to [place], to get rehab from excessive use of Xanax. The patient apparently developed shortness of breath there, and was transferred here to be evaluated. He was seen in the emergency department, and admitted with a diagnosis of COPD exacerbation. He's been smoking since the age of 11. He does continue to smoke about a pack or more a day. His symptoms included shortness of breath, tightness, cough, wheezing, and chest congestion. Cough is mostly nonproductive. The patient does not use oxygen at home. Apparently has never seen a lung doctor in the past. Not sure if he was told in the past that he had COPD. The patient denies any significant past medical history. I'm not sure where he was getting Xanax from. He denies cardiac disease, diabetes, hypertension, hyperlipidemia, and all other medical problems. Has never been formally diagnosed with COPD. White count 6.6, hemoglobin 15.9, hematocrit 50.5, and platelet count was 240,000. PT, INR, and PTT are all normal. His electrolyte profile is normal except for a creatinine of 0.62 which is actually low. The rest of his labs all look normal. His testing for gregory virus looks to be negative. Chest x-ray in my penis consistent with COPD, and some basilar atelectatic changes. The patient is seen today 05/11/2021 in follow-up on the regular medical floor. He is currently resting fairly comfortably in bed. Breathing a bit easier today compared to yesterday. 18 O2 saturations in the low 90s on 4 L/m per nasal cannula. Slightly tachycardic. Afebrile. Blood glucose 127. He continues on DuoNeb inhalations, Pulmicort and Perforomist inhalations, IV Cymetra. Antibiotics in form of ceftriaxone and azithromycin. NicoDerm patches in place. Remains in the CINY protocol. Progress note dated 05/12/2021. 61-year-old male admitted with a diagnosis of COPD exacerbation. The patient was initially at [place], trying to get rehab from excessive use of Xanax. From the COPD standpoint, the patient's doing much better. Not quite back to baseline but much improved. He is much less short of breath. Still has some chest congestion, tightness, and cough. No new laboratory data to speak of. Objective - Vital Signs Vital signs: Vital Signs Temp 97.4 F L 05/12/21 07:53 Pulse 92 05/12/21 09:08 Resp 18 05/12/21 07:53 BP 134/81 05/12/21 07:53 Pulse Ox 94 L 05/12/21 08:46 Intake & Output 05/11/21 05/12/21 05/12/21 18:59 06:59 18:59 Intake Total 240 Balance 240 Intake: Oral 240 Other: Voiding Method Toilet Toilet Toilet # Voids 3 6 # Bowel Movements 0 - Exam No acute distress, oriented 3. Currently on nasal O2 at 4 L. Saturation 94%. HEENT examination is grossly unremarkable. Neck supple. Full range of motion. No adenopathy thyromegaly or neck vein distention. Cardiovascular examination reveals regular rhythm rate. S1-S2 normal. No S3 or S4. No discernible murmur noted. Heart rate 92 bpm. Lungs reveal expiratory rhonchi and expiratory wheezes. The patient's lung sounds are much improved. Breath sounds equal bilaterally. There are no crackles. Abdomen soft bowel sounds are heard. No masses or tenderness. Extremities are intact. No cyanosis clubbing or edema. Skin is without rash or lesion. Neurologic examination is brief but nonfocal. - Labs CBC & Chem 7: 05/09/21 16:14 05/09/21 16:14 Labs: Abnormal Lab Results - Last 24 Hours (Table) 05/11/21 05/11/21 05/12/21 Range/Units 16:52 20:39 06:58 POC Glucose (mg/dL) 127 H 182 H 123 H (75-99) mg/dL 05/12/21 Range/Units 11:28 POC Glucose (mg/dL) 146 H (75-99) mg/dL Assessment and Plan Assessment: Acute exacerbation of COPD. No evidence of pneumonia clinically or radiographically. Ongoing tobacco use and nicotine addiction. History of Xanax abuse. Plan: Plan dated 05/10/2021. The patient will be placed on albuterol sulfate and ipratropium bromide, 4 times a day and when necessary. In addition, the patient will need Pulmicort 1 mg mixed with formoterol 20 g twice a day. We also recommend Solu-Medrol 60 mg every 6 hours. In addition, the patient should have a nicotine patch. Additional recommendations and suggestions are forthcoming. Prognosis is guarded. We will continue to follow and make recommendations where appropriate. Plan dated 05/12/2021. Currently, the patient is on Solu-Medrol 40 mg every 8 hours, a nicotine patch, Ativan when necessary, DuoNeb, Perforomist, budesonide and Rocephin. The patient is also on Zithromax. We will continue to follow make recommendations where appropriate. Clinically he is doing much better. No additional recommendations at this time. Prognosis is guarded. Time with Patient: Less than 30
[2021-05-12 16:51] LABS: Glucose,Whole Blood 122 mg/dL (75-99)
[2021-05-12 17:08] LABS: Basophils # (A) 0.01 X 10*3/uL (0.00-0.10); Basophils % (A) 0.1 %; Eosinophils # (A) 0 X 10*3/uL (0.04-0.35); Eosinophils % (A) 0 %; HGB 15.7 g/dL (13.0-17.0); Lymphocytes # (A) 0.63 X 10*3/uL (0.90-5.00); Lymphocytes % (A) 4.3 %; MCH 30.1 pg (27.0-32.0); MCHC 32.7 g/dL (32.0-37.0); MCV 92.1 fL (80.0-97.0); Mean Platelet Volume 10.7 fL (9.5-12.2); Monocytes # (A) 0.42 X 10*3/uL (0.20-1.00); Monocytes % (A) 2.9 %; Neutrophils # (A) 13.45 X 10*3/uL (1.80-7.70); Neutrophils % (A) 92.2 %; Platelet Count 255 X 10*3/uL (140-440); RBC 5.21 X 10*6/uL (4.40-5.60); RDW 13.9 % (11.5-14.5); WBC 14.59 X 10*3/uL (4.50-10.00)
[2021-05-12 17:18] LABS: Albumin 4.4 g/dL (3.80-4.90); Albumin/Globulin Ratio 2.44 (1.60-3.17); Anion Gap 7.5 mmol/L (4.00-12.00); BUN/Creat Ratio 26.25 Ratio (12.00-20.00); Calcium 9.6 mg/dL (8.7-10.3); Carbon Dioxide 24.5 mmol/L (21.6-31.8); Globulin 1.8 g/dL (1.6-3.3); Non-African American GFR(CKD) 95.7 (60.0-200.0); Potassium 4.2 mmol/L (3.5-5.5); Total Bilirubin 0.3 mg/dL (0.3-1.2); Total Protein 6.2 g/dL (6.2-8.2)
[2021-05-12 20:56] LABS: Glucose,Whole Blood 132 mg/dL (75-99)
[2021-05-13] MEDS: ALPRAZolam 0.5 MG TAB PO PRN ×2 (01:22→09:20)
[2021-05-13] MEDS: methylPREDNISolone SOD SUCCI 40 MG/ML 1 ML VIAL IV SCH (05:44)
[2021-05-13 06:49] LABS: Glucose,Whole Blood 120 mg/dL (75-99)
[2021-05-13] MEDS: INSULIN ASPART (NovoLOG) 100 UNIT/ML VIAL SQ SCH ×4 (07:41→20:09)
[2021-05-13] MEDS: IPRATROPIUM-ALBUTEROL 3 ML NEB INHALATION SCH ×4 (07:56→19:48)
[2021-05-13] MEDS: BUDESONIDE 1 MG/2 ML NEBU INHALATION SCH (07:56)
[2021-05-13] MEDS: FORMOTEROL FUMARATE 20 MCG/2 ML NEBU INHALATION SCH (07:56)
[2021-05-13] MEDS: ENOXAPARIN 40 MG/0.4 ML SYRINGE SQ SCH (08:47)
[2021-05-13] MEDS: PANTOPRAZOLE 40 MG TABLET PO SCH (08:47)
[2021-05-13] MEDS: THIAMINE 100 MG TAB PO SCH (08:47)
[2021-05-13] MEDS: NICOTINE 21MG/24HR PATCH TRANSDERM SCH (08:47)
[2021-05-13] MEDS: AZITHROMYCIN 500 MG TAB PO SCH (08:47)
--- NOTE | 2021-05-13 10:51 | P.PN ---
Subjective Progress Note Date: 05/13/21 Progress Note Date: 05/13/21 HISTORY OF PRESENT ILLNESS This is a 61-year-old male patient of Dr. Crowe with past medical history of tobacco use and dependence, COPD, chronic low back pain secondary to degenerative disc disease of the lumbar spine, chronic use and dependence in the past with Halcion and now with Xanax. Patient gives history that he was to have a left total knee arthroplasty in October 2019 but due to Covid this was postponed and has not had surgery, subsequently lost his job and on temporary disability. He complains of shortness of breath along with cough, nonproductive cough. He was admitted to [place] for detox from Xanax which he states he has been taking up to 15-20 mg per day. He states he has received Xanax prescriptions from a clinic and also bothering Xanax. Patient presented to [facility] emergency center for evaluation. Patient was found to be afebrile, heart rate 88, blood pressure 135/72, pulse ox 87% on room air. CBC was unremarkable. INR 1.0. Electrolytes normal. Creatinine 0.62. Liver function test were negative. ProBNP 55. Albumin 4.0. Coronavirus PCR not detected. Chest x-ray shows more prominent chronic changes with perhaps developing bibasilar infiltrate and/or atelectasis. Patient was started on IV Solu-Medrol, DuoNeb treatments, Omnicef and [facility], consult with pulmonary medicine. 05/11: Patient has been afebrile, heart rate 95, blood pressure 129/68, pulse ox is 90% on 4 L nasal cannula. Her blood glucose running between 158 and 169. Patient has been seen by pulmonary medicine and Perforomist twice daily was added. Yesterday afternoon, patient had increasing tremors, anxiety and sweats and patient was started on CIWA protocol. No new complaints. Respiratory status is improved slightly from yesterday. 05/12: Patient sitting up in bed in no apparent distress, he continues to be a bit shaky, he continues to be somewhat short of breath, he continues to have some coughing and production, he feels a bit tight in his chest at this time, he denies any abdominal pain, nausea or vomiting, he is not able to sleep at night at all, he has been on CIWA protocol, along with Xanax 00.25 milligrams orally 2 times every day to avoid withdrawal from benzodiazepine, we'll continue to wean the patient off benzodiazepines slowly but surely. Patient will likely be discharged home in the next 1 or 2 days. 05/13: Patient sitting up in bed is feeling better today he denies any chest pain, he continues to have some shortness breath, he continued to have some dry cough and no phlegm production, he continues to be shaky once in a while, but he looks a lot better than yesterday, he has no abdominal pain, nausea or vomiting, patient will likely be discharged home tomorrow morning. REVIEW OF SYSTEMS Constitutional: No fever, no chills, no night sweats. No weight change. No weakness, fatigue or lethargy. No daytime sleepiness. HEENT: positive for headache. No blurred vision or double vision, no loss of vision. No loss of Hearing, no ringing in the ears, no dizziness. No nasal drainage or congestion. No epistaxis. No sore throat. Lungs: Reports shortness of breath improved, reports cough, no sputum production. Reports wheezing. Cardiovascular: No chest pain, no lower extremity edema. No palpitations. No paroxysmal nocturnal dyspnea. No orthopnea. No lightheadedness or dizziness. No syncopal episodes. Abdominal: No abdominal pain. No nausea, vomiting. No diarrhea. No constipation. No bloody or tarry stools. No loss of appetite. Genitourinary: No dysuria, increased frequency, urgency. No urinary retention. Musculoskeletal: No myalgias. No muscle weakness, no gait dysfunction, no frequent falls. No back pain. No neck pain. Integumentary: No wounds, no lesions. No rash or pruritus. No unusual bruising. No change in hair or nails. Neurologic: No aphasia. No facial droop. No change in mentation. No head injury. No headache. No paralysis. No paresthesia. Psychiatric: No depression. Reports anxiety. No mood swings. Endocrine: No abnormal blood sugars. PHYSICAL EXAMINATION Gen: This is this is a 61-year-old male. He is resting in bed and appears to be anxious. No acute respiratory distress noted. HEENT: Head is atraumatic, normocephalic. Pupils equal, round. Sclerae is anicteric, mucous membranes of the mouth are somewhat dry without thrush NECK: Supple. No JVD. No lymphadenopathy. No thyromegaly. LUNGS: Decreased breath sounds at the bases, few rhonchi, minimal expiratory wheezes, no chest wall tenderness, no intercostal retractions. HEART: First heart sound is depressed, second heart sounds normal, there is no gallop or murmur. ABDOMEN: Soft, nontender nondistended positive bowel sounds, no hepatosplenome rocio. EXTREMITIES: No pedal edema. No calf tenderness. Dorsalis pedis +2 bilaterally. NEUROLOGICAL: Patient is awake, alert and oriented x3. Cranial nerves 2 through 12 are grossly intact, muscle power 4 out of 5 in upper and lower extremities bilaterally, deep tendon reflexes were normal there was no clonus. ASSESSMENT AND PLAN 1. Acute hypoxic respiratory failure secondary to COPD exacerbation and pneumonia. Continue patient on ceftriaxone 1 g IV piggyback daily along with Zithromax 500 mg orally once every day, continue DuoNeb 3 mg nebulization 4 times every day, continue oxygen support, continue Pulmicort 1 mg nebulization twice every day along with Formeterol NEB bid, decrease Solu-Medrol 40 mg IV push every 12 hours. 2. Benzodiazepine dependence. Patient was admitted to [place] prior to being transferred to the hospital. Patient admitted to taking up to 15-20 mg of Xanax daily. Continue patient on CIWA protocol. continue Xanax 0.5 mg orally 3 times every day. 3. COPD exacerbation. smoking cessation and counseling continue with Solu- Medrol 40 mg IV push every 8 hours, continue DuoNeb 3 mg nebulization 4 times every day, continue with Pulmicort 1 mg nebulization twice every day along with Formeterol. 4. Bilateral pneumonia, possible gram-negative pneumonia. continue patient on Rocephin 1 g IV piggyback every 24 hours, continue Zithromax 500 mg orally once every day, continue oxygen support as needed, continue with bronchodilators 5.. Tobacco use and dependence. Nicotine patch and smoking cessation. 6. History of multi-substance abuse. need to be going back to [place]. 7. Generalized osteoarthritis, degenerative disc disease, chronic pain. 8. GI prophylaxis. continue Protonix 40 mg orally once every day. 9. DVT prophylaxis. Lovenox 40 mg subcutaneously once every day. 10. COVID-19 testing negative. 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 Objective - Vital Signs Vital signs: Vital Signs Temp 97.4 F L 05/13/21 07:51 Pulse 80 05/13/21 08:12 Resp 17 05/13/21 07:51 BP 136/79 05/13/21 07:51 Pulse Ox 93 L 05/13/21 07:51 Intake & Output 05/12/21 05/13/21 05/13/21 18:59 06:59 18:59 Intake Total 580 Output Total 700 Balance -120 Intake: Oral 580 Output: Urine 700 Other: Voiding Method Toilet Toilet # Voids 2 6 # Bowel Movements 0 - Labs CBC & Chem 7: 05/12/21 11:28 05/12/21 11:26 Labs: Abnormal Lab Results - Last 24 Hours (Table) 05/12/21 05/12/21 05/12/21 Range/Units 11:26 11:28 11:28 WBC 14.59 H (4.50-10.00) X 10*3/uL Immature Gran # 0.08 H (0.00-0.04) X 10*3/uL Neutrophils # 13.45 H (1.80-7.70) X 10*3/uL Lymphocytes # 0.63 L (0.90-5.00) X 10*3/uL Eosinophils # 0 L (0.04-0.35) X 10*3/uL Chloride 110 H (96-109) mmol/L BUN/Creatinine Ratio 26.25 H (12.00-20.00) Ratio Glucose 157 H (70-110) mg/dL POC Glucose (mg/dL) 146 H (75-99) mg/dL 05/12/21 05/12/21 05/13/21 Range/Units 16:50 20:54 06:47 WBC (4.50-10.00) X 10*3/uL Immature Gran # (0.00-0.04) X 10*3/uL Neutrophils # (1.80-7.70) X 10*3/uL Lymphocytes # (0.90-5.00) X 10*3/uL Eosinophils # (0.04-0.35) X 10*3/uL Chloride (96-109) mmol/L BUN/Creatinine Ratio (12.00-20.00) Ratio Glucose (70-110) mg/dL POC Glucose (mg/dL) 122 H 132 H 120 H (75-99) mg/dL
[2021-05-13] MEDS ORDERED: methylPREDNISolone SOD SUCCI 40 MG/ML 1 ML VIAL IV SCH ×2 (11:00→18:00)
[2021-05-13 11:39] LABS: Glucose,Whole Blood 108 mg/dL (75-99)
[2021-05-13 12:12] LABS: Basophils # (A) 0.01 X 10*3/uL (0.00-0.10); Basophils % (A) 0.1 %; Eosinophils # (A) 0 X 10*3/uL (0.04-0.35); Eosinophils % (A) 0 %; HCT 47.2 % (39.6-50.0); HGB 15.7 g/dL (13.0-17.0); Lymphocytes # (A) 1.02 X 10*3/uL (0.90-5.00); Lymphocytes % (A) 10.6 %; MCHC 33.3 g/dL (32.0-37.0); MCV 93.1 fL (80.0-97.0); Mean Platelet Volume 10.9 fL (9.5-12.2); Monocytes % (A) 4.2 %; Neutrophils # (A) 8.12 X 10*3/uL (1.80-7.70); Neutrophils % (A) 84.7 %; Platelet Count 249 X 10*3/uL (140-440); RBC 5.07 X 10*6/uL (4.40-5.60); RDW 13.7 % (11.5-14.5); WBC 9.59 X 10*3/uL (4.50-10.00)
[2021-05-13 12:53] LABS: Albumin 4.3 g/dL (3.80-4.90); Albumin/Globulin Ratio 2.39 (1.60-3.17); Anion Gap 2.4 mmol/L (4.00-12.00); BUN/Creat Ratio 23.75 Ratio (12.00-20.00); Calcium 9.4 mg/dL (8.7-10.3); Carbon Dioxide 28.6 mmol/L (21.6-31.8); Globulin 1.8 g/dL (1.6-3.3); Non-African American GFR(CKD) 95.7 (60.0-200.0); Potassium 4.3 mmol/L (3.5-5.5); Total Bilirubin 0.6 mg/dL (0.3-1.2); Total Protein 6.1 g/dL (6.2-8.2)
--- NOTE | 2021-05-13 13:08 | P.PN ---
Subjective Progress Note Date: 05/13/21 Principal diagnosis: Shortness of breath. COPD exacerbation 61-year-old male, who apparently was going to [facility], to get rehab from excessive use of Xanax. The patient apparently developed shortness of breath there, and was transferred here to be evaluated. He was seen in the emergency department, and admitted with a diagnosis of COPD exacerbation. He's been smoking since the age of 11. He does continue to smoke about a pack or more a day. His symptoms included shortness of breath, tightness, cough, wheezing, and chest congestion. Cough is mostly nonproductive. The patient does not use oxygen at home. Apparently has never seen a lung doctor in the past. Not sure if he was told in the past that he had COPD. The patient denies any significant past medical history. I'm not sure where he was getting Xanax from. He denies cardiac disease, diabetes, hypertension, hyperlipidemia, and all other medical problems. Has never been formally diagnosed with COPD. White count 6.6, hemoglobin 15.9, hematocrit 50.5, and platelet count was 240,000. PT, INR, and PTT are all normal. His electrolyte profile is normal except for a creatinine of 0.62 which is actually low. The rest of his labs all look normal. His testing for gregory virus looks to be negative. Chest x-ray in my penis consistent with COPD, and some basilar atelectatic changes. The patient is seen today 05/11/2021 in follow-up on the regular medical floor. He is currently resting fairly comfortably in bed. Breathing a bit easier today compared to yesterday. 18 O2 saturations in the low 90s on 4 L/m per nasal cannula. Slightly tachycardic. Afebrile. Blood glucose 127. He continues on DuoNeb inhalations, Pulmicort and Perforomist inhalations, IV Cymetra. Antibiotics in form of ceftriaxone and azithromycin. NicoDerm patches in place. Remains in the [facility] protocol. Progress note dated 05/12/2021. 61-year-old male admitted with a diagnosis of COPD exacerbation. The patient was initially at [facility], trying to get rehab from excessive use of Xanax. From the COPD standpoint, the patient's doing much better. Not quite back to baseline but much improved. He is much less short of breath. Still has some chest congestion, tightness, and cough. No new laboratory data to speak of. Progress note dated 05/13/2021. 61-year-old male, admitted with a diagnosis of COPD exacerbation, and acute Xanax withdrawal. The patient was initially at [facility], but then was transferred here for further management. Currently, from the pulmonary standpoint, is doing much better. The patient's breathing is much improved. Denies any wheezing tightness in his chest. Minimal cough. No phlegm production. Minimal chest congestion. Current laboratory data includes a white count 9.59, hemoglobin 15.7, hematocrit 47.2, and a platelet count of 249,000. Sodium 140, potassium 4.3, chlorides 109, CO2 28.6, anion gap 10, BUN 19, and creatinine 0.8. No recent chest x-ray to report. Objective - Vital Signs Vital signs: Vital Signs Temp 97.4 F L 05/13/21 07:51 Pulse 76 05/13/21 11:05 Resp 17 05/13/21 07:51 BP 136/79 05/13/21 07:51 Pulse Ox 93 L 05/13/21 07:51 Intake & Output 05/12/21 05/13/21 05/13/21 18:59 06:59 18:59 Intake Total 580 Output Total 700 Balance -120 Intake: Oral 580 Output: Urine 700 Other: Voiding Method Toilet Toilet Toilet # Voids 2 6 # Bowel Movements 0 - Exam No acute distress, oriented 3. Currently on nasal O2 at 4 L. Saturation 96%. HEENT examination is grossly unremarkable. Neck supple. Full range of motion. No adenopathy thyromegaly or neck vein distention. Cardiovascular examination reveals regular rhythm rate. S1-S2 normal. No S3 or S4. No discernible murmur noted. Heart rate 76 bpm. Lungs reveal expiratory rhonchi and expiratory wheezes. The patient's lung sounds are much improved. Breath sounds equal bilaterally. There are no crackles. Abdomen soft bowel sounds are heard. No masses or tenderness. Extremities are intact. No cyanosis clubbing or edema. Skin is without rash or lesion. Neurologic examination is brief but nonfocal. - Labs CBC & Chem 7: 05/13/21 06:29 05/13/21 06:29 Labs: Abnormal Lab Results - Last 24 Hours (Table) 05/12/21 05/12/21 05/12/21 Range/Units 11:26 11:28 16:50 WBC 14.59 H (4.50-10.00) X 10*3/uL Immature Gran # 0.08 H (0.00-0.04) X 10*3/uL Neutrophils # 13.45 H (1.80-7.70) X 10*3/uL Lymphocytes # 0.63 L (0.90-5.00) X 10*3/uL Eosinophils # 0 L (0.04-0.35) X 10*3/uL Chloride 110 H (96-109) mmol/L Anion Gap (4.00-12.00) mmol/L BUN/Creatinine Ratio 26.25 H (12.00-20.00) Ratio Glucose 157 H (70-110) mg/dL POC Glucose (mg/dL) 122 H (75-99) mg/dL AST (14-35) U/L ALT (10-49) U/L Total Protein (6.2-8.2) g/dL 05/12/21 05/13/21 05/13/21 Range/Units 20:54 06:29 06:29 WBC (4.50-10.00) X 10*3/uL Immature Gran # (0.00-0.04) X 10*3/uL Neutrophils # 8.12 H (1.80-7.70) X 10*3/uL Lymphocytes # (0.90-5.00) X 10*3/uL Eosinophils # 0 L (0.04-0.35) X 10*3/uL Chloride (96-109) mmol/L Anion Gap 2.40 L (4.00-12.00) mmol/L BUN/Creatinine Ratio 23.75 H (12.00-20.00) Ratio Glucose 116 H (70-110) mg/dL POC Glucose (mg/dL) 132 H (75-99) mg/dL AST 46 H (14-35) U/L ALT 63 H (10-49) U/L Total Protein 6.1 L (6.2-8.2) g/dL 05/13/21 05/13/21 Range/Units 06:47 11:37 WBC (4.50-10.00) X 10*3/uL Immature Gran # (0.00-0.04) X 10*3/uL Neutrophils # (1.80-7.70) X 10*3/uL Lymphocytes # (0.90-5.00) X 10*3/uL Eosinophils # (0.04-0.35) X 10*3/uL Chloride (96-109) mmol/L Anion Gap (4.00-12.00) mmol/L BUN/Creatinine Ratio (12.00-20.00) Ratio Glucose (70-110) mg/dL POC Glucose (mg/dL) 120 H 108 H (75-99) mg/dL AST (14-35) U/L ALT (10-49) U/L Total Protein (6.2-8.2) g/dL Assessment and Plan Assessment: Acute exacerbation of COPD. No evidence of pneumonia clinically or radiographically. Ongoing tobacco use and nicotine addiction. History of Xanax abuse. Plan: Plan dated 05/10/2021. The patient will be placed on albuterol sulfate and ipratropium bromide, 4 times a day and when necessary. In addition, the patient will need Pulmicort 1 mg m ixed with formoterol 20 g twice a day. We also recommend Solu-Medrol 60 mg every 6 hours. In addition, the patient should have a nicotine patch. Additional recommendations and suggestions are forthcoming. Prognosis is guarded. We will continue to follow and make recommendations where appropriate. Plan dated 05/12/2021. Currently, the patient is on Solu-Medrol 40 mg every 8 hours, a nicotine patch, Ativan when necessary, DuoNeb, Perforomist, budesonide and Rocephin. The patient is also on Zithromax. We will continue to follow make recommendations where appropriate. Clinically he is doing much better. No additional recommendations at this time. Prognosis is guarded. Plan dated 05/13/2021. Currently, the patient looks much better. He feels much less short of breath. The patient's Solu-Medrol will be converted to prednisone. In addition, we'll DC his Pulmicort and his formoterol in favor of Symbicort. He remains on Zithromax and DuoNeb. Additional recommendations and suggestions are forthcoming. Gnosis is guarded. The plan is for the patient to go back to [facility] maybe tomorrow. Time with Patient: Less than 30
[2021-05-13 16:49] LABS: Glucose,Whole Blood 100 mg/dL (75-99)
[2021-05-13] MEDS: SYMBICORT 160-4.5 MCG INHALER INHALATION SCH (19:49)
[2021-05-13 20:11] LABS: Glucose,Whole Blood 96 mg/dL (75-99)
[2021-05-13] MEDS: ALPRAZolam 0.5 MG TAB PO SCH (20:56)
[2021-05-14 07:13] LABS: Glucose,Whole Blood 96 mg/dL (75-99)
[2021-05-14] MEDS: INSULIN ASPART (NovoLOG) 100 UNIT/ML VIAL SQ SCH (07:32)
[2021-05-14] MEDS: ALPRAZolam 0.5 MG TAB PO SCH (07:38)
[2021-05-14] MEDS: PANTOPRAZOLE 40 MG TABLET PO SCH (07:38)
[2021-05-14] MEDS: AZITHROMYCIN 500 MG TAB PO SCH (07:38)
[2021-05-14] MEDS: NICOTINE 21MG/24HR PATCH TRANSDERM SCH (07:39)
[2021-05-14] MEDS: ENOXAPARIN 40 MG/0.4 ML SYRINGE SQ SCH (07:39)
[2021-05-14] MEDS: THIAMINE 100 MG TAB PO SCH (07:39)
[2021-05-14] MEDS: SYMBICORT 160-4.5 MCG INHALER INHALATION SCH (08:54)
[2021-05-14] MEDS: IPRATROPIUM-ALBUTEROL 3 ML NEB INHALATION SCH ×2 (08:54→12:13)
[2021-05-14] MEDS ORDERED: predniSONE 20 MG TAB PO SCH (09:00)
[2021-05-14 11:29] LABS: Glucose,Whole Blood 96 mg/dL (75-99)
[2021-05-14 12:15] VITALS: PULSE 96
--- NOTE | 2021-05-14 12:28 | P.DS ---
Providers Date of admission: 05/09/21 17:29 Expected date of discharge: 05/14/21 Attending physician: Hoa Crowe Consults: 05/09/21 17:28 Consult Physician Routine Consulting Provider: Jewel Frost Consult Reason/Comments: copd Do you want consulting provider notified?: Yes Primary care physician: Hoa Crowe Hospital Course: HISTORY OF PRESENT ILLNESS This is a 61-year-old male patient of Dr. Crowe with past medical history of tobacco use and dependence, COPD, chronic low back pain secondary to degenerative disc disease of the lumbar spine, chronic use and dependence in the past with Halcion and now with Xanax. Patient gives history that he was to have a left total knee arthroplasty in October 2019 but due to Covid this was postponed and has not had surgery, subsequently lost his job and on temporary disability. He complains of shortness of breath along with cough, nonproductive cough. He was admitted to [facility] for detox from Xanax which he states he has been taking up to 15-20 mg per day. He states he has received Xanax prescriptions from a clinic and also bothering Xanax. Patient presented to [facility] emergency center for evaluation. Patient was found to be afebrile, heart rate 88, blood pressure 135/72, pulse ox 87% on room air. CBC was unremarkable. INR 1.0. Electrolytes normal. Creatinine 0.62. Liver function test were negative. ProBNP 55. Albumin 4.0. Coronavirus PCR not detected. Chest x-ray shows more prominent chronic changes with perhaps developing bibasilar infiltrate and/or atelectasis. Patient was started on IV Solu-Medrol, DuoNeb treatments, Omnicef and admitted to the [facility] floor, consult with pulmonary medicine. 05/11: Patient has been afebrile, heart rate 95, blood pressure 129/68, pulse ox is 90% on 4 L nasal cannula. Her blood glucose running between 158 and 169. Patient has been seen by pulmonary medicine and Perforomist twice daily was added. Yesterday afternoon, patient had increasing tremors, anxiety and sweats and patient was started on CIWA protocol. No new complaints. Respiratory status is improved slightly from yesterday. 05/12: Patient sitting up in bed in no apparent distress, he continues to be a bit shaky, he continues to be somewhat short of breath, he continues to have some coughing and production, he feels a bit tight in his chest at this time, he denies any abdominal pain, nausea or vomiting, he is not able to sleep at night at all, he has been on CIWA protocol, along with Xanax 00.25 milligrams orally 2 times every day to avoid withdrawal from benzodiazepine, we'll continue to wean the patient off benzodiazepines slowly but surely. Patient will likely be discharged home in the next 1 or 2 days. 05/13: Patient sitting up in bed is feeling better today he denies any chest pain, he continues to have some shortness breath, he continued to have some dry cough and no phlegm production, he continues to be shaky once in a while, but he looks a lot better than yesterday, he has no abdominal pain, nausea or vomiting, patient will likely be discharged home tomorrow morning. discharge diagnoses: 1. Acute hypoxic respiratory failure secondary to COPD exacerbation and pneumonia. 2. Benzodiazepine dependence. 3. COPD exacerbation. 4. Bilateral pneumonia, possible gram-negative pneumonia. 5.. Tobacco use and dependence. Nicotine patch and smoking cessation. 6. History of multi-substance abuse. need to be going back to [facility]. 7. Generalized osteoarthritis, degenerative disc disease, chronic pain. Patient Condition at Discharge: Fair Plan - Discharge Summary Discharge Rx Participant: No New Discharge Prescriptions: No Action No Known Home Medications Discharge Medication List No Known Home Medications 05/09/21 [History] Follow up Appointment(s)/Referral(s): Hoa Crowe MD [Primary Care Provider] - 1-2 days Patient Instructions/Handouts: How to Stop Smoking (DC), Cigarette Smoking and Your Health (GEN), COPD (Chronic Obstructive Pulmonary Disease) (DC), Alcohol Withdrawal (DC) Activity/Diet/Wound Care/Special Instructions: [facility] will poultry picker on discharge. Call #[phone].
[2021-05-14 13:29] VITALS: BP 126/77; RESP 16; TEMP 98
--- NOTE | 2021-05-14 13:40 | P.PN ---
Subjective Progress Note Date: 05/14/21 On today's evaluation, I'm seeing this patient for a follow-up in regards to his acute COPD exacerbation. Clinically the patient is feeling better. Is on Symbicort as maintenance and and albuterol treatment [id number]. The patient was also started on a prednisone burst taper. Less short of breath, less bronchospastic and wheezy compared to yesterday. He was also given a nicotine patch. Note that the patient was undergoing rehabilitation at [facility] and he was detoxing from Xanax as the patient used to take excessive amount of Xanax as high as 16 mg. Less shaky on today's evaluation. Objective - Vital Signs Vital signs: Vital Signs Temp 98.0 F 05/14/21 13:28 Pulse 96 05/14/21 13:28 Resp 16 05/14/21 13:28 BP 126/77 05/14/21 13:28 Pulse Ox 92 L 05/14/21 13:28 Intake & Output 05/13/21 05/14/21 05/14/21 18:59 06:59 18:59 Intake Total 240 Balance 240 Intake: Oral 240 Other: Voiding Method Toilet Toilet Toilet # Voids 3 4 # Bowel Movements 0 - Exam No acute distress, oriented 3. Currently on nasal O2 at 2 L. Saturation 96%. HEENT examination is grossly unremarkable. Neck supple. Full range of motion. No adenopathy thyromegaly or neck vein distention. Cardiovascular examination reveals regular rhythm rate. S1-S2 normal. No S3 or S4. No discernible murmur noted. Heart rate 76 bpm. Lungs reveal expiratory rhonchi and expiratory wheezes. The patient's lung sounds are much improved. Breath sounds equal bilaterally. There are no crackles. Abdomen soft bowel sounds are heard. No masses or tenderness. Extremities are intact. No cyanosis clubbing or edema. Skin is without rash or lesion. Neurologic examination is brief but nonfocal. - Labs CBC & Chem 7: 05/13/21 06:29 05/13/21 06:29 Labs: Abnormal Lab Results - Last 24 Hours (Table) 05/13/21 Range/Units 16:48 POC Glucose (mg/dL) 100 H (75-99) mg/dL Assessment and Plan Plan: Acute exacerbation of COPD.clinically improving and the patient is less short of breath less bronchospastic and wheezy. He is a chronic smoker. No evidence of any pneumonia. Ongoing tobacco use and nicotine addiction. History of Xanax abuse. Plan: December discharge this patient home today No smoking Home O2 evaluation was done and the patient was able to maintain a pulse ox is above 88% and as such it is no need for home O2 at this point in time Prednisone burst taper Orders Symbicort as maintenance 160/, 2 puffs twice a day Order nebulizer and the patient will utilize albuterol/ipratropium nebulized treatments up to 4 times a day Nicotine patches Management of Xanax withdrawal/ dependence per medicine will follow
--- NOTE | 2021-05-16 11:26 | CDI ---
Documentation Clarification Form Date: 05/16/2021 11:11:18 AM From: Jamie Ford Admit Date: 05/09/2021 05:29:00 PM Patient Name: Bull Albert Visit Number: [id number] Discharge Date: 05/14/2021 03:21:00 PM ATTENTION: The Clinical Documentation Specialists (CDI) and [facility] Coding Staff appreciate your assistance in clarifying documentation. Please respond to the clarification below the line at the bottom and electronically sign. The CDI & [facility] Coding staff will review the response and follow-up if needed. Please note: Queries are made part of the Legal Health Record. If you have any questions, please contact the author of this message via ITS. Dr. Hoa Crowe Conflicting documentation has been found in the medical record. As attending physician, please provide clarification. Discharge summary states gram negative pneumonia.. Last progress note states no evidence of any pneumonia. Need to determine if pneumonia was ruled out or if wether it can be the principle diagnosis. History/Risk Factors: Clinical Indicators: CXR-patchy infiltrate Treatment: IV abx Please clarify which diagnosis is most appropriate: [ ] Pneumonia ruled out [ ] Pneumonia ruled in as principle diagnosis [ X ] Pneumonia ruled in with COPD exacerbation as principle diagnosis [ ] Other (please specify) [ ] Unable to determine MTDD
== END 2021-05-14 15:21 | disposition home or self-care (01) | DRG 190 ==
LOC: EC 15:16 → 4SSUR 17:29
PROVIDERS: ADMIT Internal Medicine; ATTEND Internal Medicine
DX: J44.1 Chronic obstructive pulmonary disease with (acute) exacerbation (principal); J15.6 Pneumonia due to other Gram-negative bacteria; J96.01 Acute respiratory failure with hypoxia; F13.239 Sedative, hypnotic or anxiolytic dependence with withdrawal, unspecified; J44.0 Chronic obstructive pulmonary disease with (acute) lower respiratory infection; E78.5 Hyperlipidemia, unspecified; F17.200 Nicotine dependence, unspecified, uncomplicated; F41.9 Anxiety disorder, unspecified; G89.29 Other chronic pain; M15.9 Polyosteoarthritis, unspecified; Z20.822 Contact with and (suspected) exposure to COVID-19; Z79.51 Long term (current) use of inhaled steroids; Z80.8 Family history of malignant neoplasm of other organs or systems; Z82.3 Family history of stroke; Z82.49 Family history of ischemic heart disease and other diseases of the circulatory system; Z96.652 Presence of left artificial knee joint
CPT/HCPCS: 36415; 71046; 80053; 83605; 83880; 84145; 85025; 85610; 85730; 87635; 93005; 94640; 94760; 96374; 99285

== ENCOUNTER 2023-08-31 23:36 | Emergency (ER) | payer OTHER ==
--- NOTE | 2023-09-01 00:41 | ED ---
General Adult HPI - General Stated complaint: Alcohol poisoning Time Seen by Provider: 09/01/23 00:41 - History of Present Illness Initial comments: 48-year-old male presenting to the ED with a chief complaint of alcohol intoxication. Per patient's , over the past 3 days he has finished "3 large bottles" of alcohol. - Related Data Previous Rx's Medication Instructions Recorded Azithromycin [Zithromax Tri-Bahman (3 500 mg PO DAILY 3 Days #3 tab 05/14/21 tabs)] Budesonide-Formot 160-4.5 Mcg 2 puff INHALATION BID #10.2 gm 05/14/21 [Symbicort 160-4.5 Mcg Inhaler] Ipratropium-Albuterol Nebulize 3 ml INHALATION Q6H #120 ml 05/14/21 [Duoneb 0.5 mg-3 mg/3 ml Soln] Nicotine 21Mg/24Hr Patch [Habitrol] 1 each TRANSDERM DAILY #30 patch 05/14/21 Pantoprazole Sodium [Protonix] 40 mg PO DAILY #30 tab 05/14/21 predniSONE 40 mg PO DIRECTED #40 tab 05/14/21 Allergies Allergy/AdvReac Type Severity Reaction Status Date / Time No Known Allergies Allergy Verified 09/01/23 00:42 Review of Systems ROS Statement: Those systems with pertinent positive or pertinent negative responses have been documented in the HPI. ROS Other: All systems not noted in ROS Statement are negative. Past Medical History Past Medical History: COPD, Hyperlipidemia Additional Past Medical History / Comment(s): chronic back pain - degenerative disk disease and spurs History of Any Multi-Drug Resistant Organisms: None Reported Date of last positivie culture/infection: 2012 MDRO Source:: abd wound Past Surgical History: Bowel Resection, Hernia Repair Additional Past Surgical History / Comment(s): bowel resection with colostomy for perforation, colostomy later reversed,pain procedure Past Anesthesia/Blood Transfusion Reactions: No Reported Reaction Additional Past Anesthesia/Blood Transfusion Reaction / Comment(s): adopted-no family hx Past Psychological History: No Psychological Hx Reported Smoking Status: Current every day smoker Past Alcohol Use History: None Reported Additional Past Alcohol Use History / Comment(s): smokes 1 PPD, has smoked for 30 yrs, past hx ETOH and drug use Past Drug Use History: None Reported - Past Family History Mother Family Medical History: Unable to Obtain Additional Family Medical History / Comment(s): adopted Father Family Medical History: Cancer (Father at the age of 75 from brain cancer) Sister(s) Family Medical History: No Reported History (One sister no major medical problem) Daughter(s) Family Medical History: No Reported History (One daughter 34-year-old no major medical problems.) General Exam - General Exam Comments Initial Comments: Visual Physical Exam Vital signs reviewed General: Well-appearing, nontoxic, no acute distress. Head: Normocephalic, atraumatic Eyes: PERRLA, EOMI ENT: Airway patent Chest: Nonlabored breathing Skin: No visual rash, normal skin tone Neuro: Alert and oriented 3 Musculoskeletal: No gross abnormalities Course Vital Signs 09/01/23 00:38 Temperature 97.7 F Pulse Rate 99 Respiratory 18 Rate Blood Pressure 124/76 O2 Sat by Pulse 91 L Oximetry Medical Decision Making - Medical Decision Making Quicknote portion performed. Signed Alexx Austin PA-C Quick note portion was performed however patient left prior to formal evaluation. - Lab Data Result diagrams: 09/01/23 00:47 09/01/23 00:47 Lab Results 09/01/23 09/01/23 09/01/23 Range/Units 00:47 00:47 00:47 WBC 8.1 (3.8-10.6) k/uL RBC 5.70 (4.30-5.90) m/uL Hgb 17.9 H (13.0-17.5) gm/dL Hct 52.3 (39.0-53.0) % MCV 91.8 (80.0-100.0) fL MCH 31.4 (25.0-35.0) pg MCHC 34.2 (31.0-37.0) g/dL RDW 12.2 (11.5-15.5) % Plt Count 282 (150-450) k/uL MPV 7.7 Neutrophils % 70 % Lymphocytes % 24 % Monocytes % 4 % Eosinophils % 0 % Basophils % 0 % Neutrophils # 5.7 (1.3-7.7) k/uL Lymphocytes # 1.9 (1.0-4.8) k/uL Monocytes # 0.3 (0-1.0) k/uL Eosinophils # 0.0 (0-0.7) k/uL Basophils # 0.0 (0-0.2) k/uL Sodium 141 (137-145) mmol/L Potassium 4.9 (3.5-5.1) mmol/L Chloride 103 (98-107) mmol/L Carbon Dioxide 19 L (22-30) mmol/L Anion Gap 19 mmol/L BUN 14 (9-20) mg/dL Creatinine 0.88 (0.66-1.25) mg/dL Est GFR (CKD-EPI)AfAm >90 (>60 ml/min/1.73 sqM) Est GFR (CKD-EPI)NonAf >90 (>60 ml/min/1.73 sqM) Glucose 121 H (74-99) mg/dL Calcium 9.5 (8.4-10.2) mg/dL Total Bilirubin 0.7 (0.2-1.3) mg/dL AST 30 (17-59) U/L ALT 25 (4-49) U/L Alkaline Phosphatase 107 (38-126) U/L Total Protein 7.3 (6.3-8.2) g/dL Albumin 4.8 (3.5-5.0) g/dL Urine Color Yellow Urine Appearance Clear (Clear) Urine pH 5.5 (5.0-8.0) Ur Specific Elton 1.019 (1.001-1.035) Urine Protein 1+ H (Negative) Urine Glucose (UA) Negative (Negative) Urine Ketones 2+ H (Negative) Urine Blood Small H (Negative) Urine Nitrite Negative (Negative) Urine Bilirubin Negative (Negative) Urine Urobilinogen <2.0 (<2.0) mg/dL Ur Leukocyte Esterase Negative (Negative) Urine RBC 1 (0-5) /hpf Urine WBC 1 (0-5) /hpf Hyaline Casts 4 H (0-2) /lpf Urine Mucus Rare H (None) /hpf Serum Alcohol 218 H* mg/dL Disposition Clinical Impression: Alcohol abuse Disposition: LEFT AGAINST MEDICAL ADVICE Referrals: Hoa Crowe MD [Primary Care Provider] - 1-2 days
[2023-09-01] MEDS ORDERED: SODIUM CHLORIDE 0.9% 1,000 ML IV STA (00:42)
[2023-09-01 00:53] VITALS: BP 124/76; PULSE 99; RESP 18; TEMP 97.7
[2023-09-01 01:45] LABS: Basophils % (A) 0 %; Eosinophils % (A) 0 %; HCT 52.3 % (39.0-53.0); HGB 17.9 gm/dL (13.0-17.5); Lymphocytes # (A) 1.9 k/uL (1.0-4.8); Lymphocytes % (A) 24 %; MCH 31.4 pg (25.0-35.0); MCHC 34.2 g/dL (31.0-37.0); MCV 91.8 fL (80.0-100.0); Mean Platelet Volume 7.7; Monocytes # (A) 0.3 k/uL (0-1.0); Monocytes % (A) 4 %; Neutrophils # (A) 5.7 k/uL (1.3-7.7); Neutrophils % (A) 70 %; Platelet Count 282 k/uL (150-450); RDW 12.2 % (11.5-15.5); WBC 8.1 k/uL (3.8-10.6)
[2023-09-01 01:47] LABS: Appearance,Urine Clear (Clear); Bilirubin,Urine Negative (Negative); Blood,Urine Small (Negative); Color,Urine Yellow; Glucose,Urine (UA) Negative (Negative); Hyaline Casts,Urine 4 /lpf (0-2); Ketones,Urine 2+ (Negative); Leukocyte Esterase,Urine Negative (Negative); Mucus,Urine Rare /hpf; Nitrite,Urine Negative (Negative); PH, Urine 5.5 (5.0-8.0); Protein,Urine 1+ (Negative); RBC,Urine 1 /hpf (0-5); Specific Gravity,Urine 1.019 (1.001-1.035); Urobilinogen,Urine <2.0 mg/dL (<2.0); WBC,Urine 1 /hpf (0-5)
[2023-09-01 03:11] LABS: ALT 25 U/L (4-49); AST 30 U/L (17-59); African American GFR (CKD) >90 (>60 ml/min/1.73 sqM); Albumin 4.8 g/dL (3.5-5.0); Alkaline Phosphatase 107 U/L (38-126); Anion Gap 19 mmol/L; Blood Urea Nitrogen 14 mg/dL (9-20); Calcium 9.5 mg/dL (8.4-10.2); Carbon Dioxide 19 mmol/L (22-30); Chloride 103 mmol/L (98-107); Glucose 121 mg/dL (74-99); Non-African American GFR(CKD) >90 (>60 ml/min/1.73 sqM); Potassium 4.9 mmol/L (3.5-5.1); Sodium 141 mmol/L (137-145); Total Bilirubin 0.7 mg/dL (0.2-1.3); Total Protein 7.3 g/dL (6.3-8.2)
[2023-09-01 03:13] LABS: Alcohol 218 mg/dL
== END 2023-09-01 04:48 | disposition left against medical advice (07) ==
LOC: EC 23:36
DX: F10.129 Alcohol abuse with intoxication, unspecified (principal); Y90.7 Blood alcohol level of 200-239 mg/100 ml; J44.9 Chronic obstructive pulmonary disease, unspecified; F17.210 Nicotine dependence, cigarettes, uncomplicated; Z53.29 Procedure and treatment not carried out because of patient's decision for other reasons
CPT/HCPCS: 36415; 80053; 80320; 81001; 85025; 99283

== ENCOUNTER → 2024-09-21 | Outpatient (CLI) | payer MEDICARE ==
--- NOTE | 2024-09-21 13:06 | US ---
EXAMINATION TYPE: US carotid duplex BILAT DATE OF EXAM: 09/21/2024 COMPARISON: NONE CLINICAL INDICATION: Male, 64 years old with history of [id number] CAROTID STENOSIS, BILAT; TECHNIQUE: Grayscale, color Doppler and spectral Doppler evaluation of the bilateral carotid systems and vertebral arteries. Indirect Doppler criteria was utilized. FINDINGS: EXAM MEASUREMENTS: RIGHT: Peak Systolic Velocity (PSV) cm/sec ----- Right CCA: 30.0 ----- Right ICA: 79.1 ----- Right ECA: 98.6 ICA/CCA ratio: 2.6 RIGHT: End Diastole cm/sec ----- Right CCA: 5.2 ----- Right ICA: 31.4 ----- Right ECA: 8.4 LEFT: Peak Systolic Velocity (PSV) cm/sec ----- Left CCA: 37.7 ----- Left ICA: 73.2 ----- Left ECA: 84.2 ICA/CCA ratio: 1.9 LEFT: End Diastole cm/sec ----- Left CCA: 11.3 ----- Left ICA: 26.5 ----- Left ECA: 14.9 VERTEBRALS (direction of flow): Right Vertebral: Antegrade Left Vertebral: Antegrade Rhythm: Normal IMPRESSION: Right: No hemodynamically significant stenosis. Left: No hemodynamically significant stenosis. Criteria for Assigning % of Stenosis / Diameter reduction (Estimation based on the indirect measurements of the internal carotid artery velocities (ICA PSV). 1. Normal (no stenosis)=ICA PSV < 125 cm/s: ratio < 2.0: ICA EDV<40 cm/s. 2. Less than 50% stenosis=ICA PSV < 125 cm/s: ratio < 2.0: ICA EDV<40 cm/s. 3. 50 to 69% stenosis=ICA PSV of 125 to 230 cm/s: ration 2.0 ? 4.0: ICA EDV 40-100 cm/s. 4. Greater than 70% stenosis to near occlusion= ICA PSV > 230 cm/s: ratio > 4.0: ICA EDV > 100 cm/s. 5. Near occlusion= ICA PSV velocities may be low or undetectable: variable ratio and ICA EDV. 6. Total occlusion=unable to detect flow. [facility], , 09/21/2024 1:04 PM
--- NOTE | 2024-09-21 13:37 | CTL ---
EXAMINATION TYPE: CT Low Dose Lung DATE OF EXAM ORDERED: 09/21/2024 COMPARISON: None CLINICAL INDICATION: Male, 64 years old with history of F17.210 nicotine dependence; PHH, Personal hx nicotine dependence current smoker 1 ppd x 50 years hx COPD, Lung cancer screening, History of Smoki ng/tobacco use. TECHNIQUE: Low dose computed tomography scan was performed through the chest at 1 mm thick sections a nd reconstructed images in multiple planes at 1 mm and [address] DLP: 126.[address] CTDI: 3.1 mGy Automated exposure control for dose reduction was used. CT DIAGNOSTIC QUALITY: Satisfactory FINDINGS: There are mild emphysematous changes. There is mild interstitial scarring in the right middle lobe an d lingula. There is a 2.3 x 1.7 cm subpleural parenchymal mass in the left upper lobe posteriorly which is highl y suspicious for neoplasm. There is no airspace consolidation. There is no pleural effusion or pneumothorax. There is mild aneurysmal dilatation of the ascending thoracic aorta which is approximately 4.3 cm. Th ere is no mediastinal, hilar or axillary adenopathy. Limited scanning of the upper abdomen reveals no gross abnormality. No focal osseous lesions are seen. IMPRESSION: 1. Low lung RADS category 4B-suspicious for malignancy. PET scan and/or tissue sampling is recommende d. 2. Mild emphysematous changes. 3. No pleural effusion or adenopathy. 4. 4.3 cm aneurysmal dilatation of the ascending thoracic aorta. [facility], , 09/21/2024 1:35 PM
--- NOTE | 2024-09-21 17:16 | CA ---
Transthoracic Echo Report Name: Bull Albert Age: 64 Gender: M : 1960 Exam Date: 09/21/2024 13:08 Exam Location: [place] [facility] Ht (in): 71 Wt (lb): 200 Ordering Physician: Hoa Crowe MD Attending/Referring Phys: Hoa Crowe MD [employer] Saray Baires, [facility] Procedure CPT: Indications: I34.0 mitral valve regurgitation Cardiac Hx: Technical Quality: Fair Contrast 1: Total Dose (mL): Contrast 2: Total Dose (mL): MEASUREMENTS (Male / Female) Normal Values 2D ECHO LV Diastolic Diameter PLAX 4.4 cm 4.2 - 5.9 / 3.9 - 5.3 cm LV Systolic Diameter PLAX 2.9 cm IVS Diastolic Thickness 0.9 cm 0.6 - 1.0 / 0.6 - 0.9 cm LVPW Diastolic Thickness 1.1 cm 0.6 - 1.0 / 0.6 - 0.9 cm LV Relative Wall Thickness 0.5 RV Internal Dim ED PLAX 3.9 cm LA Systolic Diameter LX 4.2 cm 3.0 - 4.0 / 2.7 - 3.8 cm M-MODE Aortic Root Diameter MM 4.0 cm AV Cusp Separation MM 2.2 cm DOPPLER AV Peak Velocity 100.9 cm/s AV Peak Gradient 4.1 mmHg MV Area PHT 2.6 cm??? Mitral E Point Velocity 72.0 cm/s Mitral A Point Velocity 105.3 cm/s Mitral E to A Ratio 0.7 MV Deceleration Time 295.0 ms TR Peak Velocity 274.5 cm/s TR Peak Gradient 30.1 mmHg Right Ventricular Systolic Press 35.1 mmHg FINDINGS Left Ventricle Left ventricular ejection fraction is estimated at 55-60 %. Left ventricular cavity size normal. Left ventricular wall thickness normal. No obvious regional wall motion abnormalities. Right Ventricle Moderate right ventricular dilatation. Mild pulmonary hypertension. Right Atrium Normal right atrial size. No right atrial thrombus or mass seen. Left Atrium Mildly increased left atrial diameter. No left atrial thrombus or mass present. Mitral Valve Structurally normal mitral valve. No mitral stenosis, regurgitation or prolapse. Aortic Valve Aortic valve not well visualized. No aortic valve stenosis or regurgitation. Tricuspid Valve Structurally normal tricuspid valve. Mild tricuspid regurgitation. Pulmonic Valve Pulmonic valve not well visualized. Pericardium Small pericardial effusion. Aorta Moderate aortic dilatation at the level of the sinuses of valsalva 40 mm CONCLUSIONS Normal LV function Moderate aortic root dilatation Previewed by: Dr. Garret Morrison MD (Electronically Signed) Final Date: 21 September 2024 17:15
== END ==
LOC: CPPFTMAIN 11:18
PROVIDERS: ATTEND Internal Medicine
DX: I34.0 Nonrheumatic mitral (valve) insufficiency (principal); J44.9 Chronic obstructive pulmonary disease, unspecified; I65.23 Occlusion and stenosis of bilateral carotid arteries; F17.210 Nicotine dependence, cigarettes, uncomplicated
CPT/HCPCS: 71271; 93306; 93880; 94060; 94726; 94729

== ENCOUNTER → 2024-10-07 | Outpatient (CLI) | payer MEDICARE ==
--- NOTE | 2024-10-10 22:03 | PE ---
EXAMINATION TYPE: PET CT fusion skull to thigh DATE OF EXAM: 10/07/2024 COMPARISON: Low-dose CT chest 09/21/24 Prior PET/CT: None at this location CLINICAL INDICATION: Male, 64 years old with history of R91.8 LUNG MASS, 670.60 TECHNIQUE: Following the intravenous administration of 10.49 mCi of F-18 FDG, whole body imag es are performed PET CT fusion skull to thigh. Images are reviewed on the computer in the coronal, a xial, and sagittal planes. Reconstructed rotating images are created on independent workstation and reviewed on the computer. A localization and attenuation correction CT is performed in conjunction with the PET scan. DLP: 670.60 mGycm SCAN: Initial Blood glucose: 119 mg/dL Average Mediastinum SUV: 2.17 Average Liver SUV: 2.81 FINDINGS: NECK: No abnormal uptake THORAX: There is a focal area of increased uptake in the posterior medial left upper lung field measu ring 17.86 SUV. Image 76. Findings are suspicious for neoplasm. Small hyperintensities are within the superior mediastinum suspicious for small lymph nodes. More intense pretracheal lymphadenopathy is e vident example image 85, SUV 8.86. Image 92, SUV 8.42. Aortopulmonic window lymphadenopathy is presen t. A left hilar uptake is present image 100, SUV 10.45 left infrahilar uptake is present. ABDOMEN: The adrenal glands are enlarged and has uptake in the range is 7.25 on the left and 6.21 on the right. Findings can be compatible with metastatic disease PELVIS: No abnormal uptake OSSEOUS STRUCTURES: There is uptake within the distal left clavicle compatible with a metastatic lesi on. LOCALIZATION CT: Left posterior medial lung mass and mediastinal adenopathy is evident on the localiz ation CT. Hilar adenopathy is less apparent. The adrenal gland enlargement is evident. COMPARISON: Comparison uptake to correlate with PET/CT. IMPRESSION: 1. Uptake within the posterior medial left upper lobe nodule can be compatible with neoplasm. 2. Multiple lymph nodes with abnormal uptake within the mediastinum including superior mediastinum, p retracheal space, subcarinal space, and left hilar areas suspicious for metastatic disease. 3. 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 4. Left distal clavicular uptake suspicious for metastatic disease. [facility], , 10/10/2024 10:01 PM
== END | disposition home or self-care (01) ==
LOC: RADPETMAIN 09:43
PROVIDERS: ATTEND Internal Medicine Critical Care Medicine
DX: R91.8 Other nonspecific abnormal finding of lung field (principal); R91.1 Solitary pulmonary nodule; R59.9 Enlarged lymph nodes, unspecified
CPT/HCPCS: 78815; A9552

== ENCOUNTER 2024-10-18 11:17 | Day surgery (SDC) | payer MEDICARE ==
[2024-10-15 09:40] VITALS: BMI 27.8
[~2024-10-18 11:17] MED LIST: LACTATED RINGERS 1,000 ML IV SCH
[2024-10-18] MEDS: IPRATROPIUM-ALBUTEROL 3 ML NEB INHALATION STA ×2 (11:51→14:22)
[2024-10-18] MEDS: LACTATED RINGERS 1,000 ML IV SCH (11:58)
[2024-10-18 12:00] LABS: Glucose,Whole Blood 122 mg/dL (70-110)
[2024-10-18] MEDS: IV FLUID CONTINUATION 1,000 ML IV ONE (12:00)
[2024-10-18] MEDS: ONDANSETRON 4 MG/2 ML VIAL IVP STA (12:08)
[2024-10-18] MEDS: DEXAMETHASONE SOD PHOSPHATE 4 MG/ML 1 ML VIAL IVP STA (12:09)
[2024-10-18] MEDS ORDERED: GLYCOPYRROLATE 0.2 MG/ML 2 ML VIAL ONE (12:27)
[2024-10-18] MEDS ORDERED: methylPREDNISolone SOD SUCCI 125 MG/2 ML VIAL ONE (12:27)
[2024-10-18] MEDS ORDERED: SUCCINYLCHOLINE CHLORIDE 200 MG/10 ML VIAL IV ONE (12:27)
[2024-10-18] MEDS ORDERED: ROCURONIUM 10 MG/ML (5 ML VIAL) IV ONE (12:27)
[2024-10-18] MEDS ORDERED: PROPOFOL 10 MG/ML 20 ML VIAL IV ONE (12:27)
[2024-10-18] MEDS ORDERED: ALBUTEROL HFA INHALER INHALATION ONE (12:27)
[2024-10-18] MEDS ORDERED: LIDOCAINE 1% INJ 10MG/ML (20 ML MDV) ONE (12:27)
[2024-10-18] MEDS ORDERED: NEOSTIGMINE 1 MG/ML 10 ML VIAL ONE (12:27)
--- NOTE | 2024-10-18 13:21 | P.PCN ---
Date of Procedure: 10/18/24 Preoperative Diagnosis: Pulmonary nodule, PET avid Mediastinal lymphadenopathy, PET avid Postoperative Diagnosis: Right paratracheal, station 4R lymphadenopathy Left paratracheal station 4R lymphadenopathy Subcarinal station 7 lymphadenopathy Left hilar station 10L lymphadenopathy Procedure(s) Performed: Bronchoscopy, flexible with a bronchioloalveolar lavage of the lingula Endobronchial ultrasound Transbronchial needle aspirate, ultrasound-guided, stations 4R, 10L, 4L. Anesthesia: MAC Surgeon: Tati Rai Estimated Blood Loss (ml): 0 Pathology: other Condition: stable Disposition: floor Operative Findings: This procedure was done under general anesthesia. The patient was intubated by #8 orotracheal tube. The patient was intubated by the ADMINISTRATIVE OFFICE SPECIALIST and the patient was adequately oxygenated and ventilated. Noted preop, the patient's pulse ox was 82% upon arrival to the hospital. The patient was placed on 23rd of oxygen by nasal cannula. Following intubation, the flexible bronchoscope was introduced through the orotracheal tube was advanced into the distal trachea. The distal trachea was within normal limits. Jonelle was sharp in the midline. A full airway inspection was done and the visualized airways include the right upper lobe bronchus, bronchus and medius, right middle lobe bronchus and right lower lobe bronchus and the various 10 segments on the right and examination of the left side into the left mainstem bronchus, left upper lobe left lower lobe bronchi and the base 8 segments on the left. Therapeutic airway suctioning was done. No endobronchial tumors or lesions identified. The bronchoscope was wedged in the superior segment of the lingula and the bronchioloalveolar lavage was done. Total of 80 cc of saline was infused and 20 cc was aspirated and the aspirate was cloudy and nonbloody The flexible bronchoscope was removed and endobronchial ultrasound was inserted. Careful inspection reveals translation was done using the endobronchial ultrasound. Of significance was a 20 mm right paratracheal station 4R lymph node, a 17 mm station 10L lymph node, a 4 mm station 4R lymph node, and 11 mm station 7 lymph nodes. EBUS guidance was used to complete transbronchial needle aspiration of the mediastinal stations. Station 4R was biopsied using a 22-gauge needle with a total of 4 passes. Station 10 was biopsied with a 22-gauge needle with a total of 3 passes. Station was biopsied with a 22-gauge needle with a total of 3 p asses. Endobronchial ultrasound was removed. The flex bronchoscope was inserted. Therapeutic airway suctioning was done. Airway was cleared from any residual respiratory secretions and blood. There was no active bleeding encountered The flexible bronchoscope was removed. The patient will be extubated and following bed will be transition to recovery. The patient may encounter some respiratory difficulties due to his COPD and he may also encountered some oxygen saturation knowing that his pulse ox was 82% preoperatively on room air oxygen. Will give the patient albuterol nebulized treatments postop. Will also give the patient a prednisone burst taper at time of discharge. A dose of 125 mg of IV Solu-Medrol was also given preoperatively. He may need oxygen at the time of discharge. Will continue to monitor his progress and make further recommendations based on his postextubation respiratory status.
[2024-10-18 13:35] VITALS: TEMP 98
[2024-10-18 15:49] VITALS: BP 136/70; PULSE 97; RESP 20
== END 2024-10-18 16:11 | disposition home or self-care (01) ==
LOC: ORWHC2ENDO 11:17
PROVIDERS: ATTEND Internal Medicine Critical Care Medicine
DX: R91.1 Solitary pulmonary nodule (principal); C77.1 Secondary and unspecified malignant neoplasm of intrathoracic lymph nodes; J44.9 Chronic obstructive pulmonary disease, unspecified; E11.9 Type 2 diabetes mellitus without complications; E78.5 Hyperlipidemia, unspecified; K21.9 Gastro-esophageal reflux disease without esophagitis; F17.210 Nicotine dependence, cigarettes, uncomplicated; F10.21 Alcohol dependence, in remission; Z79.82 Long term (current) use of aspirin; Z79.84 Long term (current) use of oral hypoglycemic drugs; Z79.51 Long term (current) use of inhaled steroids; Z79.899 Other long term (current) drug therapy
CPT/HCPCS: 31624; 31653; 87070; 87205; 87116; 87102; 87206; J0330; J1100; J2710; J2405; J2003; J2704; J1596; J2919; 88108; 88305; 88341; 88342

== ENCOUNTER → 2024-10-26 | Outpatient (CLI) | payer MEDICARE ==
--- NOTE | 2024-10-26 22:39 | MR ---
EXAMINATION TYPE: MR brain wo/w con DATE OF EXAM: 10/26/2024 10:19 PM COMPARISON: PET. CLINICAL INDICATION: Male, 64 years old with history of C34.12; PHH, Recent diagnosis Lung cancer and Lt Clavicle cancer, Abnormal CT and PET imaging TECHNIQUE: Multi planar, multi sequence imaging was performed through the brain including: T1, T2, In version recovery, susceptibility weighted imaging and gradient echo imaging and Diffusion weighted im aging. The patient was then given intravenous contrast and multi planar, T1 fat-saturation images wer e obtained. IV Contrast: 9 mL Gadobutrol FINDINGS: The payton-white junctions, ventricular system, basal cisterns appear unremarkable. Diffusion-weighted imaging shows no evidence of restricted diffusion to suggest acute/subacute infarct. Intracranial ar terial flow voids are maintained. Midline structures show no abnormality. The susceptibility weighted images do not reveal any evidence for micro-hemorrhage. After administration of gadolinium, no abnor mal enhancement is seen. The bone marrow signal is within normal limits. Paranasal sinuses and mastoid air cells: No significant paranasal sinus disease. Visualized orbits: Orbital contents are intact. IMPRESSION: No evidence of intracranial mass, acute/subacute infarct, or abnormal enhancement. [facility], , 10/26/2024 10:37 PM
== END | disposition home or self-care (01) ==
LOC: RADMRIMAIN 21:30
PROVIDERS: ATTEND Internal Medicine Hematology & Oncology
DX: C34.12 Malignant neoplasm of upper lobe, left bronchus or lung (principal)
CPT/HCPCS: 70553; A9585

== ENCOUNTER 2024-11-17 07:56 | Emergency (ER) | payer MEDICARE ==
--- NOTE | 2024-11-17 08:09 | ED ---
Abdominal Pain HPI - General Chief Complaint: Abdominal Pain Stated Complaint: abd pain Time Seen by Provider: 11/17/24 07:59 Source: patient, family, RN notes reviewed, old records reviewed Mode of arrival: ambulatory Limitations: no limitations - History of Present Illness Initial Comments: This is a 64-year-old male to the ER for evaluation he presents today for evaluation regards to abdominal pain history of abdominal surgery diverticulitis, patient needed colon resection revision repair colostomy repair and then had hernia repair, he has had colonoscopy and has had no issues with surgery since but comes in with severe abdominal pain and suprapubic abdominal pain today. Patient also has a complication of going through recent evaluation for lung mass lung mass with metastasis and adrenal mass, patient states he is currently going through the figuring out process with MD Complaint: abdominal pain -: hour(s) Location: suprapubic Radiation: suprapubic Migration to: epigastric Severity: severe Quality: stabbing Consistency: constant Improves With: nothing Worsens With: nothing Associated Symptoms: nausea Treatments Prior to Arrival: other - Related Data Home Medications Medication Instructions Recorded Confirmed Atorvastatin [Lipitor] 40 mg PO DAILY 10/15/24 11/17/24 Dapagliflozin Propanediol [Farxiga] 10 mg PO DAILY 10/15/24 11/17/24 Ezetimibe [Zetia] 10 mg PO DAILY 10/15/24 11/17/24 metFORMIN HCL ER [Glucophage XR] 500 mg PO W/SUPPER 10/15/24 11/17/24 ALPRAZolam [Xanax] 0.5 mg PO Q6H 11/17/24 11/17/24 Albuterol Sulfate [Ventolin HFA] 1 puff INHALATION RT-Q4H PRN 11/17/24 11/17/24 Aspirin EC [Ecotrin Low Dose] 81 mg PO DAILY 11/17/24 11/17/24 Budesonide-Formot 160-4.5 Mcg 1 puff INHALATION RT-BID PRN 11/17/24 11/17/24 [Symbicort 160-4.5 Mcg Inhaler] Folic Acid 1 mg PO DAILY 11/17/24 11/17/24 Ondansetron Odt [Zofran Odt] 4 mg PO Q6H PRN 11/17/24 11/17/24 Ubidecarenone [Coenzyme Q10] 100 mg PO DAILY 11/17/24 11/17/24 Allergies Allergy/AdvReac Type Severity Reaction Status Date / Time No Known Allergies Allergy Verified 11/17/24 09:58 Review of Systems ROS Statement: Those systems with pertinent positive or pertinent negative responses have been documented in the HPI. ROS Other: All systems not noted in ROS Statement are negative. Past Medical History Past Medical History: Cancer, COPD, Diabetes Mellitus, GERD/Reflux, Hyperlipidemia Additional Past Medical History / Comment(s): chronic back pain - degenerative disk disease and spurs , cancer lung dx 10/12 History of Any Multi-Drug Resistant Organisms: None Reported Date of last positivie culture/infection: 2012 MDRO Source:: abd wound Past Surgical History: Bowel Resection, Hernia Repair Additional Past Surgical History / Comment(s): bowel resection with colostomy for perforation, colostomy later reversed,pain procedure, colonoscopy Past Anesthesia/Blood Transfusion Reactions: No Reported Reaction Additional Past Anesthesia/Blood Transfusion Reaction / Comment(s): adopted-no family hx, no blood transfusion Past Psychological History: No Psychological Hx Reported Smoking Status: Current every day smoker Past Alcohol Use History: None Reported Past Drug Use History: None Reported - Past Family History Mother Family Medical History: Unable to Obtain Additional Family Medical History / Comment(s): adopted Father Family Medical History: Cancer (Father at the age of 75 from brain cancer) Sister(s) Family Medical History: No Reported History (One sister no major medical problem) Daughter(s) Family Medical History: No Reported History (One daughter 34-year-old no major medical problems.) General Exam Limitations: no limitations General appearance: alert, in no apparent distress, anxious Head exam: Present: atraumatic, normocephalic, normal inspection Eye exam: Present: normal appearance, PERRL, EOMI. Absent: scleral icterus, conjunctival injection, periorbital swelling ENT exam: Present: normal exam, mucous membranes moist Neck exam: Present: normal inspection. Absent: tenderness, meningismus, lymphadenopathy Respiratory exam: Present: normal lung sounds bilaterally. Absent: respiratory distress, wheezes, rales, rhonchi, stridor Cardiovascular Exam: Present: normal rhythm, tachycardia, normal heart sounds. Absent: systolic murmur, diastolic murmur, rubs, gallop, clicks GI/Abdominal exam: Present: soft, tenderness, normal bowel sounds. Absent: distended, guarding, rebound, rigid Extremities exam: Present: normal inspection, full ROM, normal capillary refill. Absent: tenderness, pedal edema, joint swelling, calf tenderness Back exam: Present: normal inspection Neurological exam: Present: alert, oriented X3, CN II-XII intact Psychiatric exam: Present: normal affect, normal mood Skin exam: Present: warm, dry, intact, normal color. Absent: rash Course Vital Signs 11/17/24 11/17/24 08:03 13:36 Temperature 97.9 F Pulse Rate 104 H 96 Respiratory 18 16 Rate Blood Pressure 117/73 111/85 O2 Sat by Pulse 91 L 91 L Oximetry - Reevaluation(s) Reevaluation #1: 11/17/24 08:09 Medical records reviewed Reevaluation #2: 11/17/24 11:07 Patient has pain control here in the ER Reevaluation #3: Informed of results questions answered Reevaluation #4: Was pt. sent in by a medical professional or institution (, PA, CHEF MANAGER, urgent care, hospital, or halfway...) When possible be specific @ -no Did you speak to anyone other than the patient for history (EMS, parent, family, police, friend...)? What history was obtained from this source @ -no Did you review nursing and triage notes (agree or disagree)? Why? @ -agree Are old charts reviewed (outside hosp., previous admission, EMS record, old EKG, old radiological studies, urgent care reports/EKG's, halfway records)? Report findings @ -yes Differential Diagnosis (chest pain, altered mental status, abdominal pain women, abdominal pain men, vaginal bleeding, weakness, fever, dyspnea, syncope, headache, dizziness, GI bleed, back pain, seizure, CVA, palpatations, mental health, musculoskeletal)? @ -prior EKG interpreted by me (3pts min.). @ -yes X-rays interpreted by me (1pt min.). @ -yes negative for acute disease CT interpreted by me (1pt min.). @ -Yes negative for acute disease U/S interpreted by me (1pt. min.). @ -no What testing was considered but not performed or refused? (CT, X-rays, U/S, labs)? Why? @ -none What meds were considered but not given or refused? Why? @ -none Did you discuss the management of the patient with other professionals (professionals i.e. , PA, CHEF MANAGER, lab, RT, psych nurse, manager social work, bottomer operator, teacher, sales officer, sample case porter)? Give summary @ -no Was smoking cessation discussed for >3mins.? @ -no Was critical care preformed (if so, how long)? @ -no Were there social determinants of health that impacted care today? How? (Homelessness, low income, unemployed, alcoholism, drug addiction, transportation, low edu. Level, literacy, decrease access to med. care, custodial, rehab)? @ -none Was there de-escalation of care discussed even if they declined (Discuss DNR or withdrawal of care, Hospice)? DNR status @ -no What co-morbidities impacted this encounter? (DM, HTN, Smoking, COPD, CAD, Cancer, CVA, ARF, Chemo, Hep., AIDS, mental health diagnosis, sleep apnea, m orbid obesity)? @ -none Was patient admitted / discharged? Hospital course, mention meds given and route, prescriptions, significant lab abnormalities, going to OR and other pertinent info. @ - 64 male with nonspecific abdominal pain. Testing is negative here in the ER patient can be discharged home Discharge abdominal pain Undiagnosed new problem with uncertain prognosis? @ -no Drug Therapy requiring intensive monitoring for toxicity (Heparin, Nitro, Insulin, Cardizem)? @ -no Were any procedures done? @ -no Diagnosis/symptom? @ -Abdominal pain Acute, or Chronic, or Acute on Chronic? @ -Acute Uncomplicated (without systemic symptoms) or Complicated (systemic symptoms)? @ -Complicated Side effects of treatment? @ -no Exacerbation, Progression, or Severe Exacerbation? @ -exacerbation Poses a threat to life or bodily function? How? (Chest pain, USA, PA, pneumonia, PE, COPD, DKA, ARF, appy, cholecystitis, CVA, Diverticulitis, Homicidal, Suicidal, threat to staff... and all critical care pts) @ -no Reevaluation #5: Differential Abdominal Pain Men: Appendicitis, cholecystitis, diverticulosis, ischemic bowel, pancreatitis, hepatitis, UTI, gastroenteritis, AAA, incarcerated hernia, bowel obstruction, constipation, inflammatory bowel, hepatitis, peptic ulcer disease, splenic infarction, perforated viscus, testicular torsion, this is not meant to be an all-inclusive list Medical Decision Making - Medical Decision Making 64 male nonspecific abdominal pain, testing is normal here in the ER feels well and can be discharged home - Lab Data Result diagrams: 11/17/24 08:42 11/17/24 08:42 Lab Results 11/17/24 11/17/24 11/17/24 Range/Units 08:42 08:42 08:42 WBC 5.9 (3.8-10.6) k/uL RBC 5.86 (4.30-5.90) m/uL Hgb 16.6 (13.0-17.5) gm/dL Hct 51.8 (39.0-53.0) % MCV 88.3 (80.0-100.0) fL MCH 28.3 (25.0-35.0) pg MCHC 32.1 (31.0-37.0) g/dL RDW 14.0 (11.5-15.5) % Plt Count 314 (150-450) k/uL MPV 7.6 Neutrophils % 72 % Lymphocytes % 20 % Monocytes % 4 % Eosinophils % 2 % Basophils % 1 % Neutrophils # 4.2 (1.3-7.7) k/uL Lymphocytes # 1.2 (1.0-4.8) k/uL Monocytes # 0.2 (0-1.0) k/uL Eosinophils # 0.1 (0-0.7) k/uL Basophils # 0.0 (0-0.2) k/uL Hypochromasia Slight PT 11.8 (10.0-12.5) sec INR 1.1 (<1.2) APTT 24.7 (22.0-30.0) sec Sodium 138 (137-145) mmol/L Potassium 4.7 (3.5-5.1) mmol/L Chloride 97 L (98-107) mmol/L Carbon Dioxide 31 H (22-30) mmol/L Anion Gap 10 mmol/L BUN 11 (9-20) mg/dL Creatinine 0.73 (0.66-1.25) mg/dL Est GFR (CKD-EPI)AfAm >90 (>60 ml/min/1.73 sqM) Est GFR (CKD-EPI)NonAf >90 (>60 ml/min/1.73 sqM) Glucose 134 H (74-99) mg/dL Plasma Lactic Acid Gee (0.7-2.0) mmol/L Calcium 10.0 (8.4-10.2) mg/dL Phosphorus 3.6 (2.5-4.5) mg/dL Magnesium 2.0 (1.6-2.3) mg/dL Total Bilirubin 0.9 (0.2-1.3) mg/dL AST 25 (17-59) U/L ALT 22 (4-49) U/L Alkaline Phosphatase 141 H (38-126) U/L Troponin I (0.000-0.034) ng/mL Total Protein 7.3 (6.3-8.2) g/dL Albumin 4.3 (3.5-5.0) g/dL Amylase 45 (30-110) U/L Lipase 31 (23-300) U/L Urine Color Urine Appearance (Clear) Urine pH (5.0-8.0) Ur Specific Hays (1.001-1.035) Urine Protein (Negative) Urine Glucose (UA) (Negative) Urine Ketones (Negative) Urine Blood (Negative) Urine Nitrite (Negative) Urine Bilirubin (Negative) Urine Urobilinogen (<2.0) mg/dL Ur Leukocyte Esterase (Negative) Serum Alcohol <10 mg/dL 11/17/24 11/17/24 11/17/24 Range/Units 08:42 08:42 09:00 WBC (3.8-10.6) k/uL RBC (4.30-5.90) m/uL Hgb (13.0-17.5) gm/dL Hct (39.0-53.0) % MCV (80.0-100.0) fL MCH (25.0-35.0) pg MCHC (31.0-37.0) g/dL RDW (11.5-15.5) % Plt Count (150-450) k/uL MPV Neutrophils % % Lymphocytes % % Monocytes % % Eosinophils % % Basophils % % Neutrophils # (1.3-7.7) k/uL Lymphocytes # (1.0-4.8) k/uL Monocytes # (0-1.0) k/uL Eosinophils # (0-0.7) k/uL Basophils # (0-0.2) k/uL Hypochromasia PT (10.0-12.5) sec INR (<1.2) APTT (22.0-30.0) sec Sodium (137-145) mmol/L Potassium (3.5-5.1) mmol/L Chloride (98-107) mmol/L Carbon Dioxide (22-30) mmol/L Anion Gap mmol/L BUN (9-20) mg/dL Creatinine (0.66-1.25) mg/dL Est GFR (CKD-EPI)AfAm (>60 ml/min/1.73 sqM) Est GFR (CKD-EPI)NonAf (>60 ml/min/1.73 sqM) Glucose (74-99) mg/dL Plasma Lactic Acid Gee 1.6 (0.7-2.0) mmol/L Calcium (8.4-10.2) mg/dL Phosphorus (2.5-4.5) mg/dL Magnesium (1.6-2.3) mg/dL Total Bilirubin (0.2-1.3) mg/dL AST (17-59) U/L ALT (4-49) U/L Alkaline Phosphatase (38-126) U/L Troponin I <0.012 (0.000-0.034) ng/mL Total Protein (6.3-8.2) g/dL Albumin (3.5-5.0) g/dL Amylase (30-110) U/L Lipase (23-300) U/L Urine Color Yellow Urine Appearance Clear (Clear) Urine pH 6.5 (5.0-8.0) Ur Specific [place]ays 1.016 (1.001-1.035) Urine Protein Trace H (Negative) Urine Glucose (UA) Negative (Negative) Urine Ketones Negative (Negative) Urine Blood Negative (Negative) Urine Nitrite Negative (Negative) Urine Bilirubin Negative (Negative) Urine Urobilinogen <2.0 (<2.0) mg/dL Ur Leukocyte Esterase Negative (Negative) Serum Alcohol mg/dL - Radiology Data Radiology results: report reviewed (Chest x-ray and CT abdomen pelvis negative for acute disease), image reviewed Disposition Clinical Impression: Abdominal pain Disposition: HOME SELF-CARE Condition: Fair Instructions (If sedation given, give patient instructions): Abdominal Pain (ED) Is patient prescribed a controlled substance at d/c from ED?: No Referrals: Hoa Crowe MD [Primary Care Provider] - 1-2 days Time of Disposition: 12:30
[2024-11-17 08:54] LABS: Basophils % (A) 1 %; Eosinophils # (A) 0.1 k/uL (0-0.7); Eosinophils % (A) 2 %; HCT 51.8 % (39.0-53.0); HGB 16.6 gm/dL (13.0-17.5); Hypochromasia Slight; Lymphocytes # (A) 1.2 k/uL (1.0-4.8); Lymphocytes % (A) 20 %; MCH 28.3 pg (25.0-35.0); MCHC 32.1 g/dL (31.0-37.0); MCV 88.3 fL (80.0-100.0); Mean Platelet Volume 7.6; Monocytes # (A) 0.2 k/uL (0-1.0); Monocytes % (A) 4 %; Neutrophils # (A) 4.2 k/uL (1.3-7.7); Neutrophils % (A) 72 %; Platelet Count 314 k/uL (150-450); RBC 5.86 m/uL (4.30-5.90); WBC 5.9 k/uL (3.8-10.6)
[2024-11-17 09:09] LABS: ALT 22 U/L (4-49); AST 25 U/L (17-59); African American GFR (CKD) >90 (>60 ml/min/1.73 sqM); Albumin 4.3 g/dL (3.5-5.0); Alcohol <10 mg/dL; Alkaline Phosphatase 141 U/L (38-126); Amylase 45 U/L (30-110); Anion Gap 10 mmol/L; Blood Urea Nitrogen 11 mg/dL (9-20); Carbon Dioxide 31 mmol/L (22-30); Chloride 97 mmol/L (98-107); Glucose 134 mg/dL (74-99); Lipase 31 U/L (23-300); Non-African American GFR(CKD) >90 (>60 ml/min/1.73 sqM); Phosphorus 3.6 mg/dL (2.5-4.5); Potassium 4.7 mmol/L (3.5-5.1); Sodium 138 mmol/L (137-145); Total Bilirubin 0.9 mg/dL (0.2-1.3); Total Protein 7.3 g/dL (6.3-8.2)
[2024-11-17] MEDS: ONDANSETRON 4 MG/2 ML VIAL IVP STA (09:17)
[2024-11-17] MEDS: SODIUM CHLORIDE 0.9% 1,000 ML IV ONE (09:18)
[2024-11-17] MEDS: PANTOPRAZOLE 40 MG/10 ML VIAL IVP STA (09:20)
--- NOTE | 2024-11-17 09:20 | XR ---
EXAMINATION TYPE: XR chest 1V DATE OF EXAM: 11/17/2024 8:53 AM COMPARISON: Chest radiographs from 05/09/2021 CLINICAL INDICATION: Male, 64 years old with history of cp; TECHNIQUE: XR chest 1V Frontal view of the chest. FINDINGS: Lungs/Pleura: There is no evidence of pleural effusion, focal consolidation, or pneumothorax. Pulmonary vascularity: Unremarkable. Heart/mediastinum: Cardiomediastinal silhouette is unremarkable. Musculoskeletal: Degenerative changes of the shoulder joints. Remote appearing rib fracture. IMPRESSION: No acute cardiopulmonary disease/process. [facility], , 11/17/2024 9:18 AM
[2024-11-17 09:21] LABS: INR 1.1 (<1.2); Partial Thromboplastin Time 24.7 sec (22.0-30.0); Prothrombin Time 11.8 sec (10.0-12.5)
[2024-11-17] MEDS: HYDROmorphone 1 MG/ML 1 ML SYRINGE IVP STA (09:23)
[2024-11-17] MEDS: LORazepam 2 MG/ML INJ IV STA (09:25)
[2024-11-17 09:35] LABS: Appearance,Urine Clear (Clear); Bilirubin,Urine Negative (Negative); Blood,Urine Negative (Negative); Color,Urine Yellow; Glucose,Urine (UA) Negative (Negative); Ketones,Urine Negative (Negative); Leukocyte Esterase,Urine Negative (Negative); Nitrite,Urine Negative (Negative); PH, Urine 6.5 (5.0-8.0); Protein,Urine Trace (Negative); Specific Gravity,Urine 1.016 (1.001-1.035); Urobilinogen,Urine <2.0 mg/dL (<2.0)
--- NOTE | 2024-11-17 10:05 | CT ---
EXAMINATION TYPE: CT abdomen pelvis w con DATE OF EXAM: 11/17/2024 9:50 AM COMPARISON: PET/CT 10/07/2024 CLINICAL INDICATION: Male, 64 years old with history of pain; lower to mid abdominal pain TECHNIQUE: Axial CT abdomen pelvis w con;Sagittal and coronal reformats were created on a separate w orkstation. Contrast used:100ml mL of Isovue 300 with IV Contrast, (none if empty) Oral contrast used: without Oral Contrast (none if empty) CT DLP: 1077.6 mGycm, Automated exposure control for dose reduction was used. FINDINGS: LOWER CHEST: Redemonstrated small 9 mm thick pericardial effusion. Underlying emphysematous change an d strandy atelectasis or scarring at the lower lungs. No pleural effusion. ABDOMEN LIVER: Mildly enlarged at 18.9 cm. There may be underlying mild fatty infiltration. GALLBLADDER AND BILE DUCTS: Unremarkable. PANCREAS: Unremarkable. SPLEEN: Unremarkable. ADRENAL GLANDS: Progressive enlargement of the bilateral adrenal masses/nodules now 3.6 cm on the rig ht versus 2.1 cm, previously. 6.7 cm on the left versus 3.7 cm, previously. Increased surrounding fat stranding could represent some associated hemorrhage within the nodule. KIDNEYS AND URETERS: No evidence of hydronephrosis or renal calculus. The ureters are unremarkable. PELVIS BLADDER: No evidence for wall thickening or mass given limitations of exam. REPRODUCTIVE: Prostate is mildly enlarged measuring 4.9 cm in transverse dimension. Nonspecific 8 mm enhancing nodular focus anterior left paramedian prostate gland. ABDOMEN & PELVIS STOMACH AND BOWEL: No evidence of bowel obstruction. Some surgical material involving small bowel in the mid abdomen suggesting prior bowel resection and re-anastomosis. PERITONEUM/RETROPERITONEUM: No ascites fluid. However, a few scattered anterior peritoneal/omental no dules measuring up to 1.0 cm appear new. VASCULATURE: Moderate atherosclerotic plaque and calcification infrarenal abdominal aorta and common iliac arteries. MUSCULOSKELETAL: No acute osseous abnormalities LYMPH NODES: No gross evidence for lymphadenopathy.a a few scattered prominent right lower quadrant m esenteric nodes measuring up to 9 mm are unchanged. SOFT TISSUE/ABDOMINAL WALL: Unremarkable IMPRESSION: 1. Disease progression with enlarging adrenal masses currently measuring 2.6 cm on the right versus 2.1 cm, previously. 6.7 cm on the left versus 3.7 cm, previously. Fat stranding around the left adren al mass could reflect mild associated tumoral hemorrhage. 2. A few small anterior peritoneal/omental deposits measuring up to 1 cm appear new. 3. A subtle nonspecific 8 mm focus of nodular enhancement in the prostate gland. Correlate with PSA v alues and appropriate follow-up to exclude a small focus of prostate cancer. [facility], , 11/17/2024 10:03 AM
[2024-11-17 13:37] VITALS: BP 111/85; PULSE 96; RESP 16; TEMP 97.9
[2024-11-17] MEDS: ACET/COD 300 MG/30 MG STARTER PACK 6 TAB BTL PO STA (14:18)
[2024-11-17] MEDS: traMADol 50 MG STARTER PACK 3 TAB BTL PO STA (14:18)
[2024-11-17] MEDS: ONDANSETRON 4 MG ODT STARTER PACK 2 TAB BTL PO STA (14:19)
== END 2024-11-17 14:30 | disposition home or self-care (01) ==
LOC: EC 07:56
DX: R10.13 Epigastric pain (principal); R10.30 Lower abdominal pain, unspecified; R00.0 Tachycardia, unspecified; F17.200 Nicotine dependence, unspecified, uncomplicated
CPT/HCPCS: 36415; 80053; 82150; 83605; 83690; 83735; 84100; 84484; 85025; 85610; 85730; 81003; 80320; 71045; 74177; 99284; 96374; 96375 ×3; 96361; J2060; J2405; J1171; S0119; Q9967; J2470

== ENCOUNTER → 2024-11-23 | Outpatient (CLI) | payer MEDICARE ==
--- NOTE | 2024-11-24 07:08 | XR ---
EXAMINATION TYPE: XR KUB DATE OF EXAM: 11/23/2024 6:11 PM CLINICAL INDICATION: Male, 64 years old with history of R10.33 PERIUMBILICAL PAIN, pain TECHNIQUE: 3 upright images of the abdomen. COMPARISON: CT abdomen and pelvis 6 days earlier FINDINGS: Scattered gas is seen in non-distended small bowel loops. Gas and fecal material is seen in non-distended colon. There is 6 mm round density over the left upper to mid abdomen of uncertain minerva ology. No corresponding abnormality on recent CT. Lung bases show lateral left basilar linear scarrin g and/or atelectasis. There is scoliotic curvature in the lumbar spine. There is moderate degenerativ e change in both hips. No free air is seen. IMPRESSION: Overall nonobstructive bowel gas pattern. [facility], , 11/24/2024 7:05 AM
== END | disposition home or self-care (01) ==
LOC: RADXRMAIN 17:50
PROVIDERS: ATTEND Internal Medicine
DX: R10.33 Periumbilical pain (principal)
CPT/HCPCS: 74018

== ENCOUNTER → 2024-12-03 | Outpatient (CLI) | payer MEDICARE ==
[2024-12-03 15:15] LABS: African American GFR (CKD) >90 (>60 ml/min/1.73 sqM); Blood Urea Nitrogen 9 mg/dL (9-20); Non-African American GFR(CKD) >90 (>60 ml/min/1.73 sqM)
--- NOTE | 2024-12-06 08:46 | CT ---
EXAMINATION TYPE: CT abdomen pelvis w con DATE OF EXAM: 12/03/2024 4:36 PM COMPARISON: 11/17/24 CLINICAL INDICATION: Male, 64 years old with history of C34.12 LUNG CANCER, Lower abdominal pain more toward left side x3 weeks. TECHNIQUE:CT scan of the abdomen and pelvis is performed with Oral Contrast and with IV Contrast, pat ient injected with 100ml mL of Isovue 300. CT DLP: 1014.8 mGycm, Automated exposure control for dose reduction was used. FINDINGS: LUNG BASES-: No visible nodule. No infiltrate. LIVER/GB: No calcified gallstones. No space occupying hepatic lesion. Biliary tree is of normal ca liber. PANCREAS: No inflammation. No distinct mass. SPLEEN: No splenic enlargement. No lesion seen. ADRENALS: Bilateral adrenal masses are redemonstrated measuring 7.2 cm on the left and 3.3 cm on the right versus 6.4 and 2.6 cm previously KIDNEYS /BLADDER: No hydronephrosis. No nephrolithiasis. No distinct renal mass. Urinary bladder grossly unremarkable. BOWEL: Normal appendix. Normal bowel caliber. No inflammation. GENITAL ORGANS: No gross abnormality. LYMPH NODES: No greater than 1cm abdominal or pelvic lymph nodes are appreciated. AORTA: No significant abnormality. OSSEOUS STRUCTURES: No significant abnormality is seen. OTHER: No significant additional abnormality is seen. IMPRESSION: 1. Enlarging adrenal metastatic disease. [facility], , 12/06/2024 8:44 AM
== END | disposition home or self-care (01) ==
LOC: RADCTMAIN 14:32
PROVIDERS: ATTEND Internal Medicine Hematology & Oncology
DX: C79.71 Secondary malignant neoplasm of right adrenal gland (principal); C79.72 Secondary malignant neoplasm of left adrenal gland; C34.12 Malignant neoplasm of upper lobe, left bronchus or lung; E11.9 Type 2 diabetes mellitus without complications; E78.5 Hyperlipidemia, unspecified; Z71.3 Dietary counseling and surveillance
CPT/HCPCS: 74177; 82565; 84520

== ENCOUNTER → 2024-12-23 | Outpatient (CLI) | payer MEDICARE ==
--- NOTE | 2024-12-23 11:33 | XR ---
EXAMINATION TYPE: XR clavicle LT DATE OF EXAM: 12/23/2024 11:15 AM INDICATION: Patient age:Male; 64 years old; Reason for study: R52 clavicle pain; PHH. pain COMPARISON: Chest radiograph 11/17/2024 TECHNIQUE: AP and cephalic tilt views were obtained of the left clavicle. FINDINGS: No evidence of acute or chronic osseous pathology, joint dislocation or soft tissue swelling. There i s joint space narrowing with superior spurring involving the left AC joint. IMPRESSION: 1. No acute fracture or dislocation. 2. Mild left AC joint arthropathy. [facility], , 12/23/2024 11:30 AM
== END | disposition home or self-care (01) ==
LOC: RADXRMAIN 10:59
PROVIDERS: ATTEND Internal Medicine Hematology & Oncology
DX: C34.12 Malignant neoplasm of upper lobe, left bronchus or lung (principal); M19.012 Primary osteoarthritis, left shoulder

== ENCOUNTER → 2025-01-25 | Outpatient (CLI) | payer MEDICARE ==
[2025-01-25 12:42] LABS: African American GFR (CKD) >90 (>60 ml/min/1.73 sqM); Blood Urea Nitrogen 12 mg/dL (9-20); Non-African American GFR(CKD) >90 (>60 ml/min/1.73 sqM)
--- NOTE | 2025-01-25 14:21 | CT ---
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 CONTRAST: CT scan of the chest, abdomen and pelvis is performed with Oral Contrast and with IV Contrast, patien t injected with 100 mL mL of Isovue 300. FINDINGS: CT chest: Left upper lobe spiculated mass has decreased in size in the interval from 16.7 x 23.3 mm to 18.2 x 1 2.1 mm. There is a stable well circumscribed 10 mm nodule in the right suprahilar region. There are mild emph ysematous changes There are mild scattered interstitial densities in the right middle lobe, lingula and lower lobes. Th ere is no airspace consolidation There is no pleural effusion or pneumothorax. There is no mediastinal, hilar or axillary adenopathy. There is a 9 mm short axis right hilar lymph node. There is a small pericardial effusion. There is stable 4.1 cm dilatation of the ascending thoracic aorta. There are no focal osseous lesions. CT abdomen and pelvis: Gallbladder is normal without distention, pericholecystic fluid, wall thickening or gallstone. There is no biliary ductal dilatation. The right adrenal mass has decreased from 3.2 x 2.2 cm to 1.0 x 2.8 cm. The left adrenal masses stabl e and 7.4 x 5.7 cm. There is no focal mass within the liver, pancreas or spleen. There is no solid renal mass or hydronephrosis. There is no retroperitoneal adenopathy or hemorrhage in the caliber of the abdominal aorta is normal. The bowel loops are normal in caliber and there is no dilatation or obstruction. No inflammatory moctezuma ges identified in the bowel wall and mesentery. There is no free intracranial air or fluid. There is a stable 11 mm omental nodule in the left upper quadrant of the abdomen. There is no pelvic mass or adenopathy. There is moderate prostatic hypertrophy No focal osseous lesions are seen. IMPRESSION: 1. Decreasing left upper lobe lung mass as described above. 2. Metastatic adrenal lesions significantly decreased on the right and stable on the left. 3. Stable small omental nodule . 4. No focal osseous lesions. 5. Stable 10 mm well-circumscribed right suprahilar lung nodule [facility], Workstation: [facility], 01/25/2025 2:18 PM
== END | disposition home or self-care (01) ==
LOC: RADCTMAIN 11:45
PROVIDERS: ATTEND Internal Medicine Hematology & Oncology
DX: C34.12 Malignant neoplasm of upper lobe, left bronchus or lung (principal); E11.9 Type 2 diabetes mellitus without complications; E78.5 Hyperlipidemia, unspecified; R91.8 Other nonspecific abnormal finding of lung field; E27.9 Disorder of adrenal gland, unspecified
CPT/HCPCS: 82565; 84520; 71260; 74177; 36415; Q9967